=== PATIENT | female | born 1940 | race African-American/Black ===

== ENCOUNTER → 2018-04-08 | Outpatient (CLI) | payer MEDICARE, MEDICAID ==
[~2018-04-08] MED LIST: ALBU18HF2 IH; ALEN70TA46 PO; APIX2.5T PO; ASPI-1158 PO; CLOP75TA16 PO; DILT360C27 PO; DOCU-138 PO; DRON400T PO; FLUT1DIS IH; FURO40TA5 PO; LEVO75TA7 PO; LIP40 PO; LOSA25TA3 PO; LOVAZA PO; MAGN400C PO; NIAC1000 PO
== END | disposition home or self-care (01) ==
LOC: MAMMO 10:30
PROVIDERS: ATTEND Specialist
DX: Z12.31 Encounter for screening mammogram for malignant neoplasm of breast (principal)
CPT/HCPCS: 77067

== ENCOUNTER 2018-08-12 20:24 | Inpatient (IN) | payer MEDICARE, MEDICAID ==
[~2018-08-12] VITALS: Ht 162.6 cm; Wt 62.6 kg
[~2018-08-12 20:24] MED LIST changes: +ALEN70TA3 MT; +DILT360C39 PO; +DOCU-272 PO; +FISH1CAP2 PO
[2018-08-12 21:52] LABS: BASOPHILS % 0.4 % (0.0-2.0); EOSINOPHILS % 0.9 % (0.0-5.0); HEMATOCRIT. 43.8 % (36.0-48.0); HEMOGLOBIN. 14.2 g/dL (12.0-16.0); LYMPHOCYTES % 25.8 % (20.0-50.0); MEAN CORPUSCULAR HEMOGLOBIN 27.7 pg (28.0-32.0); MEAN CORPUSCULAR VOLUME 85.7 fL (81.0-99.0); MEAN PLATELET VOLUME 8.7 fl (7.4-10.4); MONOCYTES % 10.8 % (2.0-8.0); NEUTROPHILS % 62.1 % (40.0-76.0); PLATELET 161 x1000/uL (130-400); RED BLOOD CELL COUNT 5.11 mill/uL (4.2-5.4); RED CELL DISTRIBUTION WIDTH 17.7 % (11.6-14.6)
[2018-08-12 22:00] LABS: PROTHROMBIN TIME 10.3 sec (9.1-11.1)
[2018-08-12 22:01] LABS: CHLORIDE 103 mEq/L (98-107)
[2018-08-12 23:33] LABS: CLARITY URINE CLEAR (CLEAR); COLOR URINE YELLOW (YELLOW); KETONES URINE NEGATIVE (NEGATIVE); LEUKOCYTE ESTERASE URINE 1+ (NEGATIVE); NITRITE URINE NEGATIVE (NEGATIVE); OCCULT BLOOD URINE NEGATIVE (NEGATIVE); PROTEIN URINE NEGATIVE (NEGATIVE); SPECIFIC GRAVITY URINE 1.011 (1.005-1.030); UROBILINOGEN URINE 0.2 E.U./dL (0.2-1.0)
[2018-08-13] MEDS ORDERED: ASPIRIN 81MG TABLET PO ONE (00:15)
[2018-08-13] MEDS ORDERED: CEFTRIAXONE 1 G PREMIX 50 ML IV ONE (00:15)
[2018-08-13 01:50] VITALS: BP 113/52
[2018-08-13] MEDS ORDERED: MEDICATION NOT ON FORMULARY EA (Docusate Sodium (Colace) 100 MG) PO PRN (02:15)
[2018-08-13] MEDS ORDERED: IPRATROPIUM/ALBUTEROL 0.5-3(2.5)MG/3ML NEB HHN PRN (02:45)
[2018-08-13] MEDS ORDERED: TRAMADOL 50MG TABLET PO PRN (02:45)
[2018-08-13] MEDS ORDERED: ACETAMINOPHEN 650MG/20.3ML UDC PO PRN (02:45)
[2018-08-13] MEDS ORDERED: CEFTRIAXONE 1 G PREMIX 50 ML IV SCH (02:45)
[2018-08-13] MEDS ORDERED: DOCUSATE SODIUM 100MG CAPSULE PO PRN (03:00)
[2018-08-13 04:00] VITALS: BP 106/59
[2018-08-13] MEDS: SODIUM CHLORIDE 0.9% INJ 3ML FLUSH IVF SCH ×3 (06:00→21:52)
[2018-08-13] MEDS: DILTIAZEM HCL 30MG TABLET PO SCH ×3 (06:00→21:50)
[2018-08-13] MEDS: LEVOTHYROXINE SODIUM 75MCG TABLET PO SCH (06:49)
[2018-08-13 06:51] LABS: BASOPHILS % 0.5 % (0.0-2.0); EOSINOPHILS % 1.9 % (0.0-5.0); HEMATOCRIT. 38.2 % (36.0-48.0); HEMOGLOBIN. 12.2 g/dL (12.0-16.0); LYMPHOCYTES % 33.6 % (20.0-50.0); MEAN CORPUSCULAR HEMOGLOBIN 27.5 pg (28.0-32.0); MEAN CORPUSCULAR VOLUME 85.6 fL (81.0-99.0); MEAN PLATELET VOLUME 8.7 fl (7.4-10.4); MONOCYTES % 13.4 % (2.0-8.0); NEUTROPHILS % 50.6 % (40.0-76.0); PLATELET 144 x1000/uL (130-400); RED BLOOD CELL COUNT 4.46 mill/uL (4.2-5.4); RED CELL DISTRIBUTION WIDTH 17.5 % (11.6-14.6)
[2018-08-13 07:25] LABS: CHLORIDE 104 mEq/L (98-107)
[2018-08-13 08:00] VITALS: BP 98/63
[2018-08-13] MEDS ORDERED: FUROSEMIDE 20MG TABLET PO SCH (09:00)
[2018-08-13] MEDS ORDERED: MEDICATION NOT ON FORMULARY EA (Aspirin (Aspirin Ec) 81 MG) PO SCH (09:00)
[2018-08-13] MEDS ORDERED: MEDICATION NOT ON FORMULARY EA (Losartan Potassium (Cozaar) 25 MG) PO SCH (09:00)
[2018-08-13] MEDS ORDERED: LOSARTAN POTASSIUM 25 MG TABLET PO SCH (09:00)
[2018-08-13] MEDS ORDERED: MEDICATION NOT ON FORMULARY EA (Clopidogrel Bisulfate (Plavix) 75 MG) PO SCH (09:00)
[2018-08-13] MEDS: ASPIRIN 81MG TABLET PO SCH (09:47)
[2018-08-13] MEDS: APIXABAN 2.5 MG TABLET PO SCH ×2 (09:47→16:40)
[2018-08-13] MEDS: CLOPIDOGREL 75MG TABLET PO SCH (09:47)
[2018-08-13 12:00] VITALS: BP 91/57
[2018-08-13 16:00] VITALS: BP 97/57
[2018-08-13] MEDS: OMEPRAZOLE 20MG CAPSULE EXTENDED RELEASE PO SCH (16:40)
[2018-08-13] MEDS: DOCUSATE SODIUM 250MG CAPSULE PO SCH (16:40)
[2018-08-13 20:00] VITALS: BP 105/55
[2018-08-13] MEDS ORDERED: LACTULOSE 20G/30ML UDC PO PRN (21:00)
[2018-08-13] MEDS ORDERED: ATORVASTATIN CALCIUM 40MG TABLET PO SCH (21:00)
[2018-08-14] VITALS: BP 108/62
[2018-08-14] MEDS ORDERED: CEFTRIAXONE 1 G PREMIX 50 ML IV SCH
[2018-08-14 04:00] VITALS: BP 116/72
[2018-08-14] MEDS: DILTIAZEM HCL 30MG TABLET PO SCH (06:24)
[2018-08-14] MEDS: SODIUM CHLORIDE 0.9% INJ 3ML FLUSH IVF SCH ×2 (06:24→10:08)
[2018-08-14 07:03] LABS: BASOPHILS % 0.5 % (0.0-2.0); EOSINOPHILS % 2.9 % (0.0-5.0); HEMATOCRIT. 39.5 % (36.0-48.0); LYMPHOCYTES % 34.6 % (20.0-50.0); MEAN CORPUSCULAR HEMOGLOBIN 28.2 pg (28.0-32.0); MEAN CORPUSCULAR VOLUME 85.4 fL (81.0-99.0); MEAN PLATELET VOLUME 8.8 fl (7.4-10.4); MONOCYTES % 13.3 % (2.0-8.0); NEUTROPHILS % 48.7 % (40.0-76.0); PLATELET 149 x1000/uL (130-400); RED BLOOD CELL COUNT 4.63 mill/uL (4.2-5.4); RED CELL DISTRIBUTION WIDTH 17.6 % (11.6-14.6)
[2018-08-14 08:00] VITALS: BP 134/85
[2018-08-14] MEDS: DOCUSATE SODIUM 250MG CAPSULE PO SCH (08:28)
[2018-08-14] MEDS: ASPIRIN 81MG TABLET PO SCH (08:28)
[2018-08-14] MEDS: OMEPRAZOLE 20MG CAPSULE EXTENDED RELEASE PO SCH (08:28)
[2018-08-14] MEDS: CLOPIDOGREL 75MG TABLET PO SCH (08:28)
[2018-08-14] MEDS: APIXABAN 2.5 MG TABLET PO SCH (08:29)
[2018-08-14] MEDS: LEVOTHYROXINE SODIUM 75MCG TABLET PO SCH (08:29)
[2018-08-14 11:57] VITALS: BP 115/80
[2018-08-14 12:00] VITALS: BP 113/71
[2018-08-14] MEDS ORDERED: CIPR-264 PO ×2 (12:05→12:06)
== END 2018-08-14 14:15 | disposition home or self-care (01) | DRG 682 ==
LOC: ER 21:58 → 7WST 08-13 00:20 → EDBEDREQ 08-13 00:21 → EDBEDREQTM 08-13 00:21 → ENRESERV 08-13 00:39
PROVIDERS: ADMIT Family Medicine Adult Medicine; ATTEND Family Medicine Adult Medicine
DX: N17.9 Acute kidney failure, unspecified (principal); I50.21 Acute systolic (congestive) heart failure; I13.0 Hypertensive heart and chronic kidney disease with heart failure and stage 1 through stage 4 chronic kidney disease, or unspecified chronic kidney disease; N39.0 Urinary tract infection, site not specified; I34.0 Nonrheumatic mitral (valve) insufficiency; R10.13 Epigastric pain; I48.2 Chronic atrial fibrillation; E03.9 Hypothyroidism, unspecified; K56.41 Fecal impaction; E27.8 Other specified disorders of adrenal gland; E78.5 Hyperlipidemia, unspecified; N18.9 Chronic kidney disease, unspecified; J44.9 Chronic obstructive pulmonary disease, unspecified; I25.5 Ischemic cardiomyopathy; K57.90 Diverticulosis of intestine, part unspecified, without perforation or abscess without bleeding; I73.9 Peripheral vascular disease, unspecified; I25.10 Atherosclerotic heart disease of native coronary artery without angina pectoris; Z95.1 Presence of aortocoronary bypass graft; Z95.810 Presence of automatic (implantable) cardiac defibrillator; Z82.49 Family history of ischemic heart disease and other diseases of the circulatory system; Z79.899 Other long term (current) drug therapy; Z79.02 Long term (current) use of antithrombotics/antiplatelets; Z79.82 Long term (current) use of aspirin; I25.2 Old myocardial infarction
CPT/HCPCS: 36415; 71045; 74176; 80048; 83735; 83880; 84484; 93005; 96365; 97162; 99285; J0696

== ENCOUNTER 2019-06-06 20:54 | Emergency (ER) | payer MEDICARE, OTHER ==
[~2019-06-06] VITALS: Ht 160 cm; Wt 60.0 kg
[~2019-06-06 20:54] MED LIST changes: -ALBU18HF2 IH; -ALEN70TA3 MT; -ALEN70TA46 PO; +CIPR-264 PO; -CLOP75TA16 PO; +CLOP75TA4 PO; -DILT360C27 PO; -DILT360C39 PO; -DRON400T PO; -FISH1CAP2 PO; -FLUT1DIS IH; -FURO40TA5 PO; -LOVAZA PO; -MAGN400C PO; -NIAC1000 PO
[2019-06-06] MEDS ORDERED: SODIUM CHLORIDE 0.9% 1,000 ML IV ONE (21:25)
[2019-06-06 21:51] LABS: BASOPHILS % 0.6 % (0.0-2.0); HEMATOCRIT. 41.6 % (36.0-48.0); HEMOGLOBIN. 13.4 g/dL (12.0-16.0); LYMPHOCYTES % 20.4 % (20.0-50.0); MEAN CORPUSCULAR HEMOGLOBIN 28.2 pg (28.0-32.0); MEAN CORPUSCULAR VOLUME 87.3 fL (81.0-99.0); MEAN PLATELET VOLUME 8.9 fl (7.4-10.4); MONOCYTES % 8.9 % (2.0-8.0); NEUTROPHILS % 69.1 % (40.0-76.0); PLATELET 166 x1000/uL (130-400); RED BLOOD CELL COUNT 4.77 mill/uL (4.2-5.4); RED CELL DISTRIBUTION WIDTH 18.2 % (11.6-14.6)
[2019-06-06 21:52] LABS: CHLORIDE 115 mEq/L (98-107)
[2019-06-06 22:35] LABS: CLARITY URINE CLOUDY (CLEAR); COLOR URINE YELLOW (YELLOW); KETONES URINE NEGATIVE (NEGATIVE); LEUKOCYTE ESTERASE URINE 2+ (NEGATIVE); NITRITE URINE NEGATIVE (NEGATIVE); OCCULT BLOOD URINE NEGATIVE (NEGATIVE); PH URINE 5.5 (4.5-8.0); PROTEIN URINE NEGATIVE (NEGATIVE); SPECIFIC GRAVITY URINE 1.017 (1.005-1.030)
[2019-06-07 00:03] VITALS: BP 134/83
== END 2019-06-07 00:04 | disposition home or self-care (01) ==
LOC: ER 20:54
DX: R55 Syncope and collapse (principal); E86.0 Dehydration; N39.0 Urinary tract infection, site not specified; I48.91 Unspecified atrial fibrillation; I25.10 Atherosclerotic heart disease of native coronary artery without angina pectoris; E11.9 Type 2 diabetes mellitus without complications; I10 Essential (primary) hypertension; I25.2 Old myocardial infarction; J44.9 Chronic obstructive pulmonary disease, unspecified; Z95.1 Presence of aortocoronary bypass graft; Z79.899 Other long term (current) drug therapy
CPT/HCPCS: 36415; 71045; 80053; 81003; 83690; 83880; 84484; 85025; 93005; 96360; 96361; 99284; J7030

== ENCOUNTER 2019-07-29 03:40 | Inpatient (IN) | payer MEDICARE, MEDICAID, OTHER ==
[~2019-07-29] VITALS: Ht 162.6 cm; Wt 65.8 kg
[2019-07-29] MEDS ORDERED: METHYLPREDNISOLONE SOD SUCC 125 MG/2 ML VIAL IV STA (04:00)
[2019-07-29] MEDS ORDERED: ALBUTEROL (0.083%) 2.5MG/3ML NEB HHN STA (04:00)
[2019-07-29] MEDS ORDERED: IPRATROPIUM BROMIDE (0.02%) 0.5MG/2.5ML NEB HHN STA (04:00)
[2019-07-29 04:31] LABS: CHLORIDE 115 mEq/L (98-107)
[2019-07-29 04:32] LABS: BASOPHILS % 0.8 % (0.0-2.0); EOSINOPHILS % 2.2 % (0.0-5.0); HEMOGLOBIN. 11.5 g/dL (12.0-16.0); LYMPHOCYTES % 33.4 % (20.0-50.0); MEAN CORPUSCULAR HEMOGLOBIN 28.3 pg (28.0-32.0); MEAN CORPUSCULAR VOLUME 88.8 fL (81.0-99.0); MEAN PLATELET VOLUME 8.8 fl (7.4-10.4); MONOCYTES % 11.2 % (2.0-8.0); NEUTROPHILS % 52.4 % (40.0-76.0); PLATELET 153 x1000/uL (130-400); RED BLOOD CELL COUNT 4.05 mill/uL (4.2-5.4); RED CELL DISTRIBUTION WIDTH 19.2 % (11.6-14.6)
[2019-07-29] MEDS ORDERED: FUROSEMIDE 40MG/4ML VIAL IVP ONE (05:30)
[2019-07-29 08:00] VITALS: BP 154/78
[2019-07-29] MEDS ORDERED: MAGNESIUM/ALUMINUM HYDROXIDE/SIMETHICONE 30ML UDC PO PRN (10:00)
[2019-07-29] MEDS ORDERED: GUAIFENESIN 200MG/10ML SUGAR FREE UDC PO PRN (10:00)
[2019-07-29] MEDS ORDERED: ACETAMINOPHEN 325MG TABLET PO PRN (10:00)
[2019-07-29] MEDS ORDERED: HYDROCODONE/ACETAMINOPHEN 5/325MG TABLET PO PRN (10:00)
[2019-07-29] MEDS ORDERED: DOCUSATE SODIUM 100MG CAPSULE PO PRN (10:00)
[2019-07-29] MEDS ORDERED: CLONIDINE 0.1MG TABLET PO PRN (10:00)
[2019-07-29] MEDS ORDERED: IPRATROPIUM/ALBUTEROL 0.5-3(2.5)MG/3ML NEB HHN PRN (10:00)
[2019-07-29] MEDS ORDERED: ATOR40TA70 PO (10:23)
[2019-07-29] MEDS ORDERED: DOCU-138 PO (10:23)
[2019-07-29] MEDS ORDERED: LEVO25TA2 PO (10:23)
[2019-07-29] MEDS ORDERED: ALEN1TAB MT (10:23)
[2019-07-29] MEDS ORDERED: ALBU6.7H9 INH (10:23)
[2019-07-29] MEDS ORDERED: DILT360C27 PO (10:23)
[2019-07-29] MEDS ORDERED: LOSA25TA26 PO (10:23)
[2019-07-29] MEDS ORDERED: FURO-151 PO (10:23)
[2019-07-29] MEDS ORDERED: DONE5TAB7 MT (10:23)
[2019-07-29 12:00] VITALS: BP 130/62
[2019-07-29] MEDS ORDERED: DILTIAZEM HCL 300MG CAPSULE SR 24HR PO SCH (12:45)
[2019-07-29] MEDS ORDERED: APIXABAN 2.5 MG TABLET PO SCH (13:00)
[2019-07-29] MEDS ORDERED: INFLUENZA VIRUS VACCINE(AFLURIA) 0.5ML SYR IM ONE (14:00)
[2019-07-29] MEDS ORDERED: AZITHROMYCIN 500 MG TABLET PO NR (15:00)
[2019-07-29] MEDS: FUROSEMIDE 40MG TABLET PO SCH (15:36)
[2019-07-29] MEDS: LOSARTAN POTASSIUM 25 MG TABLET PO SCH (15:36)
[2019-07-29] MEDS: ASPIRIN 81MG EC TABLET PO SCH (15:37)
[2019-07-29] MEDS: LEVOTHYROXINE SODIUM 25MCG TABLET PO SCH (15:37)
[2019-07-29] MEDS: DONEPEZIL HCL 5MG TABLET PO SCH (15:37)
[2019-07-29] MEDS: CLOPIDOGREL 75MG TABLET PO SCH (15:37)
[2019-07-29 16:00] VITALS: BP 130/69
[2019-07-29] MEDS: DILTIAZEM HCL 180MG CAPSULE CD 24HR PO SCH (18:14)
[2019-07-29] MEDS: PREDNISONE 20MG TABLET PO SCH (18:15)
[2019-07-29] MEDS: APIXABAN 2.5 MG TABLET PO SCH (18:16)
[2019-07-29] MEDS: ATORVASTATIN CALCIUM 40MG TABLET PO SCH (20:34)
[2019-07-29] MEDS: FLUTICASONE PROPIONATE 50MCG/SPRAY BOTTLE BOTHNSTRLS SCH (20:34)
[2019-07-29] MEDS: GUAIFENESIN 600MG ER TABLET PO SCH (20:34)
[2019-07-29] MEDS: IPRATROPIUM/ALBUTEROL 0.5-3(2.5)MG/3ML NEB HHN SCH (20:42)
[2019-07-29 20:53] VITALS: BP 146/91
[2019-07-30] VITALS: BP 116/58
[2019-07-30 00:18] VITALS: BP 98/53
[2019-07-30] MEDS: IPRATROPIUM/ALBUTEROL 0.5-3(2.5)MG/3ML NEB HHN SCH ×4 (02:17→21:12)
[2019-07-30 04:00] VITALS: BP 121/72
[2019-07-30 06:05] LABS: CLARITY URINE CLEAR (CLEAR); COLOR URINE YELLOW (YELLOW); KETONES URINE NEGATIVE (NEGATIVE); LEUKOCYTE ESTERASE URINE NEGATIVE (NEGATIVE); NITRITE URINE NEGATIVE (NEGATIVE); OCCULT BLOOD URINE NEGATIVE (NEGATIVE); PROTEIN URINE NEGATIVE (NEGATIVE); SPECIFIC GRAVITY URINE 1.013 (1.005-1.030); UROBILINOGEN URINE 0.2 E.U./dL (0.2-1.0)
[2019-07-30 06:26] LABS: *AMPHETAMINES SCREEN URINE NEGATIVE (NEGATIVE); *BARBITURATES SCREEN URINE NEGATIVE (NEGATIVE); *BENZODIAZEPINES SCREEN URINE NEGATIVE (NEGATIVE); *COCAINE SCREEN URINE NEGATIVE (NEGATIVE); METHADONE URINE SCREEN NEGATIVE (NEGATIVE); OPIATES URINE SCREEN NEGATIVE (NEGATIVE)
[2019-07-30 06:27] LABS: CANNABINOID URINE SCREEN PRESUMTIVE POSITIVE (NEGATIVE); PHENCYCLIDINE URINE SCREEN NEGATIVE (NEGATIVE)
[2019-07-30 08:00] VITALS: BP 133/88
[2019-07-30] MEDS: LEVOTHYROXINE SODIUM 25MCG TABLET PO SCH (08:17)
[2019-07-30] MEDS: DONEPEZIL HCL 5MG TABLET PO SCH (09:55)
[2019-07-30] MEDS: GUAIFENESIN 600MG ER TABLET PO SCH ×2 (09:55→20:55)
[2019-07-30] MEDS: CLOPIDOGREL 75MG TABLET PO SCH (09:55)
[2019-07-30] MEDS: FUROSEMIDE 40MG TABLET PO SCH (09:56)
[2019-07-30] MEDS: AZITHROMYCIN 250 MG TABLET PO SCH (09:56)
[2019-07-30] MEDS: ASPIRIN 81MG EC TABLET PO SCH (09:56)
[2019-07-30] MEDS: LOSARTAN POTASSIUM 25 MG TABLET PO SCH (09:56)
[2019-07-30] MEDS: DILTIAZEM HCL 180MG CAPSULE CD 24HR PO SCH (09:56)
[2019-07-30] MEDS: APIXABAN 2.5 MG TABLET PO SCH ×2 (09:58→17:53)
[2019-07-30] MEDS: PREDNISONE 20MG TABLET PO SCH ×2 (09:58→17:53)
[2019-07-30] MEDS: FLUTICASONE PROPIONATE 50MCG/SPRAY BOTTLE BOTHNSTRLS SCH ×2 (10:02→20:56)
[2019-07-30 13:16] LABS: CHLORIDE 109 mEq/L (98-107)
[2019-07-30 13:22] LABS: HEMATOCRIT. 34.5 % (36.0-48.0); HEMOGLOBIN. 11.1 g/dL (12.0-16.0); MEAN CORPUSCULAR HEMOGLOBIN 27.6 pg (28.0-32.0); MEAN CORPUSCULAR VOLUME 86.1 fL (81.0-99.0); MEAN PLATELET VOLUME 8.9 fl (7.4-10.4); PLATELET 163 x1000/uL (130-400); RED BLOOD CELL COUNT 4.01 mill/uL (4.2-5.4); RED CELL DISTRIBUTION WIDTH 18.5 % (11.6-14.6)
[2019-07-30 13:24] LABS: PHOSPHORUS 2.7 mg/dL (2.5-4.9)
[2019-07-30 13:25] LABS: LDL CHOLESTEROL 58 mg/dL (5-100)
[2019-07-30 13:28] LABS: HDL CHOLESTEROL 59 mg/dL (40-59); T4 FREE 1.19 ng/dL (0.76-1.46)
[2019-07-30 16:00] VITALS: BP 107/53
[2019-07-30 18:19] LABS: PLATELET ESTIMATE NORMAL
[2019-07-30 20:00] VITALS: BP 112/53
[2019-07-30] MEDS: ATORVASTATIN CALCIUM 40MG TABLET PO SCH (20:56)
[2019-07-31] VITALS: BP 103/56
[2019-07-31] MEDS: IPRATROPIUM/ALBUTEROL 0.5-3(2.5)MG/3ML NEB HHN SCH ×4 (01:50→19:54)
[2019-07-31 04:00] VITALS: BP 97/46
[2019-07-31 07:23] LABS: HEMATOCRIT. 35.1 % (36.0-48.0); HEMOGLOBIN. 11.2 g/dL (12.0-16.0); MEAN CORPUSCULAR HEMOGLOBIN 27.5 pg (28.0-32.0); MEAN PLATELET VOLUME 8.7 fl (7.4-10.4); PLATELET 164 x1000/uL (130-400); RED BLOOD CELL COUNT 4.08 mill/uL (4.2-5.4); RED CELL DISTRIBUTION WIDTH 18.3 % (11.6-14.6)
[2019-07-31 08:00] VITALS: BP 114/59
[2019-07-31] MEDS: LEVOTHYROXINE SODIUM 25MCG TABLET PO SCH (08:28)
[2019-07-31 09:45] LABS: PLATELET ESTIMATE NORMAL
[2019-07-31] MEDS: FLUTICASONE PROPIONATE 50MCG/SPRAY BOTTLE BOTHNSTRLS SCH ×2 (09:48→21:04)
[2019-07-31] MEDS: PREDNISONE 20MG TABLET PO SCH ×2 (09:48→16:22)
[2019-07-31] MEDS: GUAIFENESIN 600MG ER TABLET PO SCH ×2 (09:49→21:04)
[2019-07-31] MEDS: LOSARTAN POTASSIUM 25 MG TABLET PO SCH (09:49)
[2019-07-31] MEDS: DONEPEZIL HCL 5MG TABLET PO SCH (09:49)
[2019-07-31] MEDS: AZITHROMYCIN 250 MG TABLET PO SCH (09:49)
[2019-07-31] MEDS: ASPIRIN 81MG EC TABLET PO SCH (09:49)
[2019-07-31] MEDS: APIXABAN 2.5 MG TABLET PO SCH ×2 (09:49→16:22)
[2019-07-31] MEDS: FUROSEMIDE 40MG TABLET PO SCH (09:49)
[2019-07-31] MEDS: CLOPIDOGREL 75MG TABLET PO SCH (09:49)
[2019-07-31] MEDS: DILTIAZEM HCL 180MG CAPSULE CD 24HR PO SCH (09:49)
[2019-07-31 13:31] VITALS: BP 108/58
[2019-07-31 16:53] VITALS: BP 108/46
[2019-07-31 20:00] VITALS: BP 99/54
[2019-07-31] MEDS: ATORVASTATIN CALCIUM 40MG TABLET PO SCH (21:04)
[2019-08-01] VITALS: BP 101/56
[2019-08-01] MEDS: IPRATROPIUM/ALBUTEROL 0.5-3(2.5)MG/3ML NEB HHN SCH ×5 (01:30→21:30)
[2019-08-01 04:00] VITALS: BP 103/58
[2019-08-01] MEDS: LEVOTHYROXINE SODIUM 25MCG TABLET PO SCH (06:34)
[2019-08-01 07:38] LABS: HEMATOCRIT. 34.8 % (36.0-48.0); HEMOGLOBIN. 11.2 g/dL (12.0-16.0); MEAN CORPUSCULAR HEMOGLOBIN 27.8 pg (28.0-32.0); MEAN CORPUSCULAR VOLUME 86.2 fL (81.0-99.0); MEAN PLATELET VOLUME 8.7 fl (7.4-10.4); PLATELET 159 x1000/uL (130-400); RED BLOOD CELL COUNT 4.03 mill/uL (4.2-5.4); RED CELL DISTRIBUTION WIDTH 18.1 % (11.6-14.6)
[2019-08-01 08:00] VITALS: BP 141/72
[2019-08-01 09:23] LABS: PLATELET ESTIMATE NORMAL
[2019-08-01] MEDS: ASPIRIN 81MG EC TABLET PO SCH (09:35)
[2019-08-01] MEDS: GUAIFENESIN 600MG ER TABLET PO SCH ×2 (09:35→21:23)
[2019-08-01] MEDS: PREDNISONE 20MG TABLET PO SCH ×2 (09:35→16:58)
[2019-08-01] MEDS: DONEPEZIL HCL 5MG TABLET PO SCH (09:36)
[2019-08-01] MEDS: CLOPIDOGREL 75MG TABLET PO SCH (09:36)
[2019-08-01] MEDS: APIXABAN 2.5 MG TABLET PO SCH ×2 (09:36→16:58)
[2019-08-01] MEDS: AZITHROMYCIN 250 MG TABLET PO SCH (09:36)
[2019-08-01] MEDS: LOSARTAN POTASSIUM 25 MG TABLET PO SCH (09:36)
[2019-08-01] MEDS: DILTIAZEM HCL 180MG CAPSULE CD 24HR PO SCH (09:37)
[2019-08-01] MEDS: FLUTICASONE PROPIONATE 50MCG/SPRAY BOTTLE BOTHNSTRLS SCH (09:43)
[2019-08-01 12:00] VITALS: BP 117/68
[2019-08-01] MEDS ORDERED: SODIUM CHLORIDE 0.9% 1,000 ML IV ONE (14:15)
[2019-08-01 17:24] VITALS: BP 94/55
[2019-08-01 20:00] VITALS: BP 100/49
[2019-08-01] MEDS: ATORVASTATIN CALCIUM 40MG TABLET PO SCH (21:23)
[2019-08-01] MEDS: BUDESONIDE 0.5MG/2ML NEB HHN SCH (21:30)
[2019-08-02] VITALS: BP 129/72
[2019-08-02] MEDS: IPRATROPIUM/ALBUTEROL 0.5-3(2.5)MG/3ML NEB HHN SCH ×3 (01:39→13:41)
[2019-08-02 04:00] VITALS: BP 124/69
[2019-08-02 06:40] LABS: HEMATOCRIT. 35.2 % (36.0-48.0); HEMOGLOBIN. 11.3 g/dL (12.0-16.0); MEAN CORPUSCULAR HEMOGLOBIN 27.8 pg (28.0-32.0); MEAN CORPUSCULAR VOLUME 86.4 fL (81.0-99.0); MEAN PLATELET VOLUME 8.7 fl (7.4-10.4); PLATELET 163 x1000/uL (130-400); RED BLOOD CELL COUNT 4.07 mill/uL (4.2-5.4); RED CELL DISTRIBUTION WIDTH 18.4 % (11.6-14.6)
[2019-08-02 08:00] VITALS: BP 103/54
[2019-08-02] MEDS: BUDESONIDE 0.5MG/2ML NEB HHN SCH (08:44)
[2019-08-02] MEDS: PREDNISONE 20MG TABLET PO SCH (09:03)
[2019-08-02] MEDS: APIXABAN 2.5 MG TABLET PO SCH (09:03)
[2019-08-02] MEDS: DONEPEZIL HCL 5MG TABLET PO SCH (09:03)
[2019-08-02] MEDS: CLOPIDOGREL 75MG TABLET PO SCH (09:03)
[2019-08-02] MEDS: AZITHROMYCIN 250 MG TABLET PO SCH (09:04)
[2019-08-02] MEDS: DILTIAZEM HCL 180MG CAPSULE CD 24HR PO SCH (09:05)
[2019-08-02] MEDS: GUAIFENESIN 600MG ER TABLET PO SCH (09:06)
[2019-08-02] MEDS: ASPIRIN 81MG EC TABLET PO SCH (09:26)
[2019-08-02] MEDS: LEVOTHYROXINE SODIUM 25MCG TABLET PO SCH (09:27)
[2019-08-02 13:07] LABS: PLATELET ESTIMATE NORMAL
[2019-08-02 14:20] LABS: CREATINE KINASE 46 IU/L (26-192)
[2019-08-02 17:36] VITALS: BP 122/70
[2019-08-02 20:00] VITALS: BP 117/60
[2019-08-03 09:09] LABS: COMPLEMENT C3 124 mg/dL (82-167)
[2019-08-03 17:11] LABS: ANTI-NUCLEAR ANTIBODIES DIRECT Negative (Negative)
== END 2019-08-02 20:46 | disposition home health service (06) | DRG 189 ==
LOC: ER 03:40 → 7WST 05:19 → ENRESERV 07:07
PROVIDERS: ADMIT Family Medicine Adult Medicine; ATTEND Family Medicine Adult Medicine
DX: J96.00 Acute respiratory failure, unspecified whether with hypoxia or hypercapnia (principal); J44.1 Chronic obstructive pulmonary disease with (acute) exacerbation; I48.20 Chronic atrial fibrillation, unspecified; I50.22 Chronic systolic (congestive) heart failure; N17.9 Acute kidney failure, unspecified; I13.0 Hypertensive heart and chronic kidney disease with heart failure and stage 1 through stage 4 chronic kidney disease, or unspecified chronic kidney disease; E03.9 Hypothyroidism, unspecified; E11.51 Type 2 diabetes mellitus with diabetic peripheral angiopathy without gangrene; E78.5 Hyperlipidemia, unspecified; I25.10 Atherosclerotic heart disease of native coronary artery without angina pectoris; I25.5 Ischemic cardiomyopathy; J06.9 Acute upper respiratory infection, unspecified; I34.0 Nonrheumatic mitral (valve) insufficiency; N18.9 Chronic kidney disease, unspecified; E11.22 Type 2 diabetes mellitus with diabetic chronic kidney disease; E87.5 Hyperkalemia; T38.0X5A Adverse effect of glucocorticoids and synthetic analogues, initial encounter; F12.90 Cannabis use, unspecified, uncomplicated; I49.5 Sick sinus syndrome; I27.21 Secondary pulmonary arterial hypertension; Z79.01 Long term (current) use of anticoagulants; Z87.891 Personal history of nicotine dependence; Z95.0 Presence of cardiac pacemaker; Z95.1 Presence of aortocoronary bypass graft; Z79.82 Long term (current) use of aspirin; Z79.899 Other long term (current) drug therapy; Z88.0 Allergy status to penicillin; Y92.89 Other specified places as the place of occurrence of the external cause
CPT/HCPCS: 36415; 71045; 76770; 80048; 80061; 80305; 81003; 82550; 83735; 83880; 84100; 84439; 84443; 84484; 86038; 86160; 87804; 90686; 93005; 93306; 93970; 94618; 94640; 94644; 96374; 97163; 97166; 99285; J1940; J2930; J7512; J7611; J7620; J7626

== ENCOUNTER 2019-08-21 18:59 | Inpatient (IN) | payer MEDICARE, OTHER ==
[~2019-08-21] VITALS: Ht 162.6 cm; Wt 78.5 kg
[~2019-08-21 18:59] MED LIST changes: +ALBU6.7H9 INH; +ALEN1TAB MT; -CIPR-264 PO; +DILT360C27 PO; -DOCU-272 PO; +DONE5TAB7 MT; +FURO-151 PO; +LEVO25TA2 PO; -LEVO75TA7 PO; +LOSA25TA26 PO; -LOSA25TA3 PO
[2019-08-21] MEDS ORDERED: SODIUM CHLORIDE 0.9% 250 ML IV ONE (20:19)
[2019-08-21] MEDS ORDERED: DILTIAZEM HCL 5MG/ML 5ML VIAL IV ONE (20:30)
[2019-08-21 21:01] LABS: BASOPHILS % 0.9 % (0.0-2.0); EOSINOPHILS % 2.5 % (0.0-5.0); HEMATOCRIT. 37.1 % (36.0-48.0); HEMOGLOBIN. 11.9 g/dL (12.0-16.0); LYMPHOCYTES % 25.9 % (20.0-50.0); MEAN CORPUSCULAR VOLUME 87.4 fL (81.0-99.0); MEAN PLATELET VOLUME 8.2 fl (7.4-10.4); MONOCYTES % 9.7 % (2.0-8.0); PLATELET 165 x1000/uL (130-400); RED BLOOD CELL COUNT 4.24 mill/uL (4.2-5.4); RED CELL DISTRIBUTION WIDTH 19.4 % (11.6-14.6)
[2019-08-21 21:09] LABS: CHLORIDE 113 mEq/L (98-107)
[2019-08-21] MEDS ORDERED: DOCUSATE SODIUM 100MG CAPSULE PO PRN (22:00)
[2019-08-21] MEDS ORDERED: ACETAMINOPHEN 325MG TABLET PO PRN (22:00)
[2019-08-21] MEDS ORDERED: DIPHENHYDRAMINE 50MG/ML VIAL IV PRN (22:00)
[2019-08-21] MEDS ORDERED: LORAZEPAM 2MG/ML CPJ IV PRN (22:00)
[2019-08-21] MEDS ORDERED: GUAIFENESIN 200MG/10ML SUGAR FREE UDC PO PRN (22:00)
[2019-08-21] MEDS ORDERED: MAGNESIUM/ALUMINUM HYDROXIDE/SIMETHICONE 30ML UDC PO PRN (22:00)
[2019-08-21] MEDS ORDERED: CLONIDINE 0.1MG TABLET PO PRN (22:00)
[2019-08-21] MEDS ORDERED: MORPHINE SULFATE 2 MG/ML CPJ (NOT FOR IM USE) IV PRN (22:00)
[2019-08-21] MEDS ORDERED: IPRATROPIUM/ALBUTEROL 0.5-3(2.5)MG/3ML NEB HHN PRN (22:00)
[2019-08-21] MEDS ORDERED: ONDANSETRON HCL 4MG/2ML INJ IV PRN (22:00)
[2019-08-21] MEDS ORDERED: ACETAMINOPHEN 650MG SUPP PR PRN (22:00)
[2019-08-21 23:20] VITALS: BP 134/81
[2019-08-22] VITALS: BP 134/81
[2019-08-22 04:00] VITALS: BP 107/63
[2019-08-22 07:18] LABS: BASOPHILS % 0.6 % (0.0-2.0); EOSINOPHILS % 3.3 % (0.0-5.0); HEMOGLOBIN. 11.6 g/dL (12.0-16.0); LYMPHOCYTES % 28.8 % (20.0-50.0); MEAN CORPUSCULAR VOLUME 86.5 fL (81.0-99.0); MEAN PLATELET VOLUME 8.5 fl (7.4-10.4); MONOCYTES % 12.4 % (2.0-8.0); NEUTROPHILS % 54.9 % (40.0-76.0); PLATELET 169 x1000/uL (130-400); RED BLOOD CELL COUNT 4.16 mill/uL (4.2-5.4); RED CELL DISTRIBUTION WIDTH 18.7 % (11.6-14.6)
[2019-08-22 07:30] LABS: CHLORIDE 115 mEq/L (98-107)
[2019-08-22 07:41] LABS: LDL CHOLESTEROL 79 mg/dL (5-100)
[2019-08-22 07:42] LABS: HDL CHOLESTEROL 71 mg/dL (40-59)
[2019-08-22 07:43] LABS: T4 FREE 0.97 ng/dL (0.76-1.46)
[2019-08-22 08:00] VITALS: BP 134/86
[2019-08-22] MEDS: FUROSEMIDE 40MG/4ML VIAL IV SCH (09:19)
[2019-08-22 12:00] VITALS: BP 117/51
[2019-08-22] MEDS ORDERED: IPRATROPIUM BROMIDE (0.02%) 0.5MG/2.5ML NEB HHN SCH (14:30)
[2019-08-22 16:00] VITALS: BP 122/79
[2019-08-22] MEDS: APIXABAN 5 MG TABLET PO SCH (16:07)
[2019-08-22] MEDS: ASPIRIN 81MG EC TABLET PO SCH (16:08)
[2019-08-22] MEDS: DILTIAZEM HCL 60MG TABLET PO SCH (17:12)
[2019-08-22 18:33] LABS: *AMPHETAMINES SCREEN URINE NEGATIVE (NEGATIVE); *BARBITURATES SCREEN URINE NEGATIVE (NEGATIVE); *BENZODIAZEPINES SCREEN URINE NEGATIVE (NEGATIVE); CANNABINOID URINE SCREEN NEGATIVE (NEGATIVE); PHENCYCLIDINE URINE SCREEN NEGATIVE (NEGATIVE)
[2019-08-22 18:34] LABS: *COCAINE SCREEN URINE NEGATIVE (NEGATIVE); METHADONE URINE SCREEN NEGATIVE (NEGATIVE); OPIATES URINE SCREEN NEGATIVE (NEGATIVE)
[2019-08-22] MEDS: BUDESONIDE 0.5MG/2ML NEB HHN SCH (19:59)
[2019-08-22] MEDS: IPRATROPIUM BROMIDE (0.02%) 0.5MG/2.5ML NEB HHN SCH ×2 (19:59→22:00)
[2019-08-22 20:00] VITALS: BP 118/61
[2019-08-22] MEDS: ATORVASTATIN CALCIUM 40MG TABLET PO SCH (22:28)
[2019-08-23] VITALS: BP 111/73
[2019-08-23] MEDS: DILTIAZEM HCL 60MG TABLET PO SCH ×4 (00:36→17:51)
[2019-08-23] MEDS: IPRATROPIUM BROMIDE (0.02%) 0.5MG/2.5ML NEB HHN SCH ×4 (02:12→20:00)
[2019-08-23 04:00] VITALS: BP 130/81
[2019-08-23 07:35] LABS: BASOPHILS % 0.6 % (0.0-2.0); EOSINOPHILS % 4.7 % (0.0-5.0); HEMATOCRIT. 32.9 % (36.0-48.0); HEMOGLOBIN. 10.8 g/dL (12.0-16.0); LYMPHOCYTES % 29.3 % (20.0-50.0); MEAN CORPUSCULAR HEMOGLOBIN 28.3 pg (28.0-32.0); MEAN CORPUSCULAR VOLUME 86.6 fL (81.0-99.0); MEAN PLATELET VOLUME 8.2 fl (7.4-10.4); MONOCYTES % 12.9 % (2.0-8.0); NEUTROPHILS % 52.5 % (40.0-76.0); PLATELET 160 x1000/uL (130-400); RED CELL DISTRIBUTION WIDTH 18.8 % (11.6-14.6)
[2019-08-23 07:40] LABS: CHLORIDE 111 mEq/L (98-107)
[2019-08-23] MEDS: BUDESONIDE 0.5MG/2ML NEB HHN SCH ×2 (07:55→19:58)
[2019-08-23 08:00] VITALS: BP 114/72
[2019-08-23] MEDS: FUROSEMIDE 40MG/4ML VIAL IV SCH (08:45)
[2019-08-23] MEDS: ASPIRIN 81MG EC TABLET PO SCH (08:45)
[2019-08-23] MEDS: APIXABAN 5 MG TABLET PO SCH ×2 (08:46→17:51)
[2019-08-23 12:00] VITALS: BP 117/83
[2019-08-23 16:00] VITALS: BP 134/73
[2019-08-23 20:00] VITALS: BP 110/56
[2019-08-23] MEDS: ATORVASTATIN CALCIUM 40MG TABLET PO SCH (21:20)
[2019-08-24] VITALS: BP 118/64
[2019-08-24] MEDS: DILTIAZEM HCL 60MG TABLET PO SCH ×4 (00:29→17:44)
[2019-08-24 04:00] VITALS: BP 112/74
[2019-08-24 07:09] LABS: BASOPHILS % 0.5 % (0.0-2.0); EOSINOPHILS % 4.7 % (0.0-5.0); HEMATOCRIT. 33.4 % (36.0-48.0); LYMPHOCYTES % 30.7 % (20.0-50.0); MEAN CORPUSCULAR HEMOGLOBIN 28.3 pg (28.0-32.0); MEAN CORPUSCULAR VOLUME 85.7 fL (81.0-99.0); MEAN PLATELET VOLUME 8.1 fl (7.4-10.4); MONOCYTES % 12.8 % (2.0-8.0); NEUTROPHILS % 51.3 % (40.0-76.0); PLATELET 166 x1000/uL (130-400); RED CELL DISTRIBUTION WIDTH 18.7 % (11.6-14.6)
[2019-08-24] MEDS: BUDESONIDE 0.5MG/2ML NEB HHN SCH (07:56)
[2019-08-24] MEDS: IPRATROPIUM BROMIDE (0.02%) 0.5MG/2.5ML NEB HHN SCH ×2 (07:56→14:11)
[2019-08-24 08:00] VITALS: BP 98/49
[2019-08-24] MEDS: FUROSEMIDE 40MG/4ML VIAL IV SCH (09:00)
[2019-08-24] MEDS: ASPIRIN 81MG EC TABLET PO SCH (09:54)
[2019-08-24] MEDS: APIXABAN 5 MG TABLET PO SCH ×2 (09:54→17:46)
[2019-08-24 12:00] VITALS: BP 98/52
[2019-08-24 17:27] VITALS: BP 98/52
== END 2019-08-24 18:58 | DRG 291 ==
LOC: ER 18:59 → 8WST 21:55 → ENRESERV 22:55 → CANRESERV 22:55 → ENRESERV 22:58
PROVIDERS: ADMIT Family Medicine Adult Medicine; ATTEND Family Medicine Adult Medicine
DX: I13.0 Hypertensive heart and chronic kidney disease with heart failure and stage 1 through stage 4 chronic kidney disease, or unspecified chronic kidney disease (principal); I50.23 Acute on chronic systolic (congestive) heart failure; J96.00 Acute respiratory failure, unspecified whether with hypoxia or hypercapnia; J44.1 Chronic obstructive pulmonary disease with (acute) exacerbation; I48.19 Other persistent atrial fibrillation; I42.9 Cardiomyopathy, unspecified; E16.2 Hypoglycemia, unspecified; E03.9 Hypothyroidism, unspecified; E87.8 Other disorders of electrolyte and fluid balance, not elsewhere classified; I49.5 Sick sinus syndrome; I25.10 Atherosclerotic heart disease of native coronary artery without angina pectoris; N18.9 Chronic kidney disease, unspecified; I27.20 Pulmonary hypertension, unspecified; D64.9 Anemia, unspecified; E78.00 Pure hypercholesterolemia, unspecified; R26.9 Unspecified abnormalities of gait and mobility; E78.5 Hyperlipidemia, unspecified; Z82.49 Family history of ischemic heart disease and other diseases of the circulatory system; Z87.891 Personal history of nicotine dependence; Z95.1 Presence of aortocoronary bypass graft; Z79.01 Long term (current) use of anticoagulants; Z95.0 Presence of cardiac pacemaker; Z79.899 Other long term (current) drug therapy; Z91.14 Patient's other noncompliance with medication regimen
CPT/HCPCS: 36415; 71045; 80048; 80061; 80305; 82962; 83735; 83880; 84439; 84443; 84484; 92523; 93005; 94640; 96361; 96374; 97112; 97116; 97162; 97166; 99285; J1940; J3490; J7050; J7620; J7626

== ENCOUNTER 2019-08-24 18:55 | Inpatient (IN) | payer MEDICARE, OTHER ==
[~2019-08-24] VITALS: Ht 162.6 cm; Wt 78.5 kg
[2019-08-24 18:55] VITALS: BP 112/67
[2019-08-24 20:00] VITALS: BP 106/35
[2019-08-24] MEDS ORDERED: LORAZEPAM 2MG/ML CPJ IV PRN (20:00)
[2019-08-24] MEDS ORDERED: ONDANSETRON HCL 4MG/2ML INJ IV PRN (20:00)
[2019-08-24] MEDS ORDERED: IPRATROPIUM/ALBUTEROL 0.5-3(2.5)MG/3ML NEB HHN PRN (20:00)
[2019-08-24] MEDS ORDERED: MORPHINE SULFATE 2 MG/ML CPJ (NOT FOR IM USE) IV PRN (20:00)
[2019-08-24] MEDS ORDERED: DOCUSATE SODIUM 100MG CAPSULE PO PRN (20:00)
[2019-08-24] MEDS ORDERED: ACETAMINOPHEN 650MG SUPP PR PRN (20:00)
[2019-08-24] MEDS ORDERED: GUAIFENESIN 200MG/10ML SUGAR FREE UDC PO PRN (20:00)
[2019-08-24] MEDS ORDERED: DIPHENHYDRAMINE 50MG/ML VIAL IV PRN (20:00)
[2019-08-24] MEDS ORDERED: MAGNESIUM/ALUMINUM HYDROXIDE/SIMETHICONE 30ML UDC PO PRN (20:00)
[2019-08-24] MEDS ORDERED: ACETAMINOPHEN 325MG TABLET PO PRN (20:00)
[2019-08-24] MEDS ORDERED: CLONIDINE 0.1MG TABLET PO PRN (20:00)
[2019-08-24] MEDS: ATORVASTATIN CALCIUM 40MG TABLET PO SCH (21:41)
[2019-08-24] MEDS: IPRATROPIUM BROMIDE (0.02%) 0.5MG/2.5ML NEB HHN SCH (21:51)
[2019-08-24] MEDS: BUDESONIDE 0.5MG/2ML NEB HHN SCH (21:52)
[2019-08-25] MEDS: DILTIAZEM HCL 60MG TABLET PO SCH ×5 (00:27→23:31)
[2019-08-25] MEDS: IPRATROPIUM BROMIDE (0.02%) 0.5MG/2.5ML NEB HHN SCH ×4 (01:29→20:57)
[2019-08-25 07:20] LABS: BASOPHILS % 0.5 % (0.0-2.0); EOSINOPHILS % 4.8 % (0.0-5.0); HEMATOCRIT. 33.9 % (36.0-48.0); HEMOGLOBIN. 10.8 g/dL (12.0-16.0); LYMPHOCYTES % 32.9 % (20.0-50.0); MEAN CORPUSCULAR HEMOGLOBIN 27.6 pg (28.0-32.0); MEAN CORPUSCULAR VOLUME 86.8 fL (81.0-99.0); MEAN PLATELET VOLUME 8.3 fl (7.4-10.4); NEUTROPHILS % 47.8 % (40.0-76.0); PLATELET 168 x1000/uL (130-400); RED BLOOD CELL COUNT 3.91 mill/uL (4.2-5.4); RED CELL DISTRIBUTION WIDTH 19.3 % (11.6-14.6)
[2019-08-25 07:24] LABS: CHLORIDE 109 mEq/L (98-107)
[2019-08-25] MEDS: BUDESONIDE 0.5MG/2ML NEB HHN SCH ×2 (07:25→20:57)
[2019-08-25 08:21] VITALS: BP 115/70
[2019-08-25] MEDS: FUROSEMIDE 40MG/4ML VIAL IVP SCH ×2 (09:00→09:45)
[2019-08-25] MEDS: APIXABAN 5 MG TABLET PO SCH ×2 (09:45→17:14)
[2019-08-25] MEDS: ASPIRIN 81MG TABLET PO SCH (09:45)
[2019-08-25] MEDS: DOCUSATE SODIUM 250MG CAPSULE PO SCH (16:00)
[2019-08-25] MEDS ORDERED: SORBITOL 70% SOLN 30ML PO NR (16:00)
[2019-08-25 20:00] VITALS: BP 131/81
[2019-08-25] MEDS: ATORVASTATIN CALCIUM 40MG TABLET PO SCH (20:39)
[2019-08-26] MEDS: IPRATROPIUM BROMIDE (0.02%) 0.5MG/2.5ML NEB HHN SCH ×4 (02:09→20:56)
[2019-08-26] MEDS: DILTIAZEM HCL 60MG TABLET PO SCH ×3 (06:35→18:00)
[2019-08-26] MEDS: BUDESONIDE 0.5MG/2ML NEB HHN SCH ×2 (07:42→20:56)
[2019-08-26 08:16] VITALS: BP 127/87
[2019-08-26] MEDS: APIXABAN 5 MG TABLET PO SCH ×2 (09:05→16:14)
[2019-08-26] MEDS: DOCUSATE SODIUM 250MG CAPSULE PO SCH (09:05)
[2019-08-26] MEDS: ASPIRIN 81MG TABLET PO SCH (09:05)
[2019-08-26] MEDS: FUROSEMIDE 40MG TABLET PO SCH (09:05)
[2019-08-26 17:59] LABS: T4 FREE 0.95 ng/dL (0.76-1.46)
[2019-08-26 20:00] VITALS: BP 118/67
[2019-08-26] MEDS: ATORVASTATIN CALCIUM 40MG TABLET PO SCH (20:49)
[2019-08-27] MEDS: IPRATROPIUM BROMIDE (0.02%) 0.5MG/2.5ML NEB HHN SCH ×4 (01:10→22:17)
[2019-08-27] MEDS: DILTIAZEM HCL 60MG TABLET PO SCH ×4 (06:00→17:14)
[2019-08-27 07:54] LABS: CHLORIDE 109 mEq/L (98-107)
[2019-08-27 08:00] VITALS: BP 127/66
[2019-08-27 08:07] LABS: FOLIC ACID (FOLATE) SERUM 9.1 ng/mL (>5.38); PHOSPHORUS 4.1 mg/dL (2.5-4.9)
[2019-08-27 08:08] LABS: TOTAL IRON BINDING CAPACITY 391 ug/dL (250-450)
[2019-08-27] MEDS: BUDESONIDE 0.5MG/2ML NEB HHN SCH ×2 (08:09→22:14)
[2019-08-27] MEDS: ASPIRIN 81MG TABLET PO SCH (09:23)
[2019-08-27] MEDS: DOCUSATE SODIUM 250MG CAPSULE PO SCH (09:24)
[2019-08-27] MEDS: FUROSEMIDE 40MG TABLET PO SCH (09:24)
[2019-08-27] MEDS: APIXABAN 5 MG TABLET PO SCH ×2 (11:54→17:14)
[2019-08-27] MEDS: LACTULOSE 20G/30ML UDC PO SCH ×2 (14:42→21:32)
[2019-08-27] MEDS: CYANOCOBALAMIN 1000MCG/ML VIAL IM SCH (14:43)
[2019-08-27 17:46] LABS: BASOPHILS % 0.4 % (0.0-2.0); EOSINOPHILS % 1.1 % (0.0-5.0); HEMATOCRIT. 36.7 % (36.0-48.0); HEMOGLOBIN. 11.8 g/dL (12.0-16.0); LYMPHOCYTES % 18.5 % (20.0-50.0); MEAN CORPUSCULAR HEMOGLOBIN 27.8 pg (28.0-32.0); MEAN CORPUSCULAR VOLUME 86.2 fL (81.0-99.0); MEAN PLATELET VOLUME 8.4 fl (7.4-10.4); MONOCYTES % 14.3 % (2.0-8.0); NEUTROPHILS % 65.7 % (40.0-76.0); PLATELET 159 x1000/uL (130-400); RED BLOOD CELL COUNT 4.25 mill/uL (4.2-5.4); RED CELL DISTRIBUTION WIDTH 19.1 % (11.6-14.6)
[2019-08-27 20:00] VITALS: BP 122/64
[2019-08-27] MEDS: ATORVASTATIN CALCIUM 40MG TABLET PO SCH (21:32)
[2019-08-27] MEDS ORDERED: BUDESONIDE 0.5MG/2ML NEB ONE (22:10)
[2019-08-28] MEDS: IPRATROPIUM BROMIDE (0.02%) 0.5MG/2.5ML NEB HHN SCH ×5 (03:07→21:20)
[2019-08-28] MEDS: DILTIAZEM HCL 60MG TABLET PO SCH ×5 (05:16→23:59)
[2019-08-28] MEDS: LACTULOSE 20G/30ML UDC PO SCH ×2 (05:16→13:15)
[2019-08-28 08:14] VITALS: BP 100/67
[2019-08-28] MEDS: ASPIRIN 81MG TABLET PO SCH (09:00)
[2019-08-28] MEDS: FUROSEMIDE 40MG TABLET PO SCH (09:59)
[2019-08-28] MEDS: APIXABAN 5 MG TABLET PO SCH ×2 (09:59→20:56)
[2019-08-28] MEDS: CYANOCOBALAMIN 1000MCG/ML VIAL IM SCH (09:59)
[2019-08-28] MEDS: DOCUSATE SODIUM 250MG CAPSULE PO SCH (09:59)
[2019-08-28 20:00] VITALS: BP 133/81
[2019-08-28] MEDS: ATORVASTATIN CALCIUM 40MG TABLET PO SCH (20:56)
[2019-08-29] MEDS: IPRATROPIUM BROMIDE (0.02%) 0.5MG/2.5ML NEB HHN SCH ×4 (01:20→21:24)
[2019-08-29] MEDS: DILTIAZEM HCL 60MG TABLET PO SCH ×3 (06:25→17:12)
[2019-08-29 07:36] LABS: CHLORIDE 108 mEq/L (98-107)
[2019-08-29 07:39] LABS: BASOPHILS % 0.3 % (0.0-2.0); EOSINOPHILS % 1.8 % (0.0-5.0); HEMATOCRIT. 36.7 % (36.0-48.0); HEMOGLOBIN. 12.1 g/dL (12.0-16.0); LYMPHOCYTES % 20.6 % (20.0-50.0); MEAN CORPUSCULAR HEMOGLOBIN 28.2 pg (28.0-32.0); MEAN CORPUSCULAR VOLUME 85.6 fL (81.0-99.0); MEAN PLATELET VOLUME 8.7 fl (7.4-10.4); MONOCYTES % 13.2 % (2.0-8.0); NEUTROPHILS % 64.1 % (40.0-76.0); PLATELET 163 x1000/uL (130-400); RED BLOOD CELL COUNT 4.28 mill/uL (4.2-5.4); RED CELL DISTRIBUTION WIDTH 18.9 % (11.6-14.6)
[2019-08-29 08:00] VITALS: BP 114/68
[2019-08-29] MEDS: ASPIRIN 81MG TABLET PO SCH (10:27)
[2019-08-29] MEDS: FUROSEMIDE 40MG TABLET PO SCH (10:27)
[2019-08-29] MEDS: APIXABAN 5 MG TABLET PO SCH ×2 (10:27→17:12)
[2019-08-29] MEDS: LACTULOSE 20G/30ML UDC PO SCH (10:27)
[2019-08-29] MEDS: DOCUSATE SODIUM 250MG CAPSULE PO SCH (10:27)
[2019-08-29] MEDS: CYANOCOBALAMIN 1000MCG/ML VIAL IM SCH (10:28)
[2019-08-29 20:00] VITALS: BP 114/70
[2019-08-29] MEDS: ATORVASTATIN CALCIUM 40MG TABLET PO SCH (20:31)
[2019-08-30] MEDS: IPRATROPIUM BROMIDE (0.02%) 0.5MG/2.5ML NEB HHN SCH ×4 (02:33→20:08)
[2019-08-30] MEDS: DILTIAZEM HCL 60MG TABLET PO SCH ×4 (05:59→17:30)
[2019-08-30 06:52] LABS: BASOPHILS % 0.4 % (0.0-2.0); EOSINOPHILS % 2.6 % (0.0-5.0); HEMATOCRIT. 34.5 % (36.0-48.0); HEMOGLOBIN. 11.4 g/dL (12.0-16.0); LYMPHOCYTES % 16.2 % (20.0-50.0); MEAN CORPUSCULAR HEMOGLOBIN 28.4 pg (28.0-32.0); MEAN CORPUSCULAR VOLUME 86.3 fL (81.0-99.0); MEAN PLATELET VOLUME 8.8 fl (7.4-10.4); MONOCYTES % 13.6 % (2.0-8.0); NEUTROPHILS % 67.2 % (40.0-76.0); PLATELET 150 x1000/uL (130-400); RED CELL DISTRIBUTION WIDTH 18.4 % (11.6-14.6)
[2019-08-30 07:59] VITALS: BP 116/75
[2019-08-30] MEDS: ASPIRIN 81MG TABLET PO SCH (08:44)
[2019-08-30] MEDS: FUROSEMIDE 40MG TABLET PO SCH (08:44)
[2019-08-30] MEDS: DOCUSATE SODIUM 250MG CAPSULE PO SCH (08:44)
[2019-08-30] MEDS: CYANOCOBALAMIN 1000MCG/ML VIAL IM SCH (08:44)
[2019-08-30] MEDS: APIXABAN 5 MG TABLET PO SCH ×2 (08:44→16:42)
[2019-08-30] MEDS: LACTULOSE 20G/30ML UDC PO SCH (08:44)
[2019-08-30 20:00] VITALS: BP 127/62
[2019-08-30] MEDS: ATORVASTATIN CALCIUM 40MG TABLET PO SCH (20:52)
[2019-08-31] MEDS: IPRATROPIUM BROMIDE (0.02%) 0.5MG/2.5ML NEB HHN SCH ×3 (02:00→21:34)
[2019-08-31] MEDS: DILTIAZEM HCL 60MG TABLET PO SCH ×5 (05:49→23:19)
[2019-08-31 08:00] VITALS: BP 109/55
[2019-08-31] MEDS: APIXABAN 5 MG TABLET PO SCH (08:44)
[2019-08-31] MEDS: LEVOTHYROXINE SODIUM 25MCG TABLET PO SCH (08:44)
[2019-08-31] MEDS: ASPIRIN 81MG TABLET PO SCH (08:44)
[2019-08-31] MEDS: DOCUSATE SODIUM 250MG CAPSULE PO SCH (08:44)
[2019-08-31] MEDS: CYANOCOBALAMIN 1000MCG/ML VIAL IM SCH (08:44)
[2019-08-31] MEDS: FUROSEMIDE 40MG TABLET PO SCH (08:44)
[2019-08-31] MEDS: LACTULOSE 20G/30ML UDC PO SCH (09:00)
[2019-08-31 18:26] LABS: HEMATOCRIT 37.6 % (36.0-48.0); HEMOGLOBIN 12.4 g/dL (12.0-16.0); MEAN CORPUSCULAR HEMOGLOBIN 28.7 pg (28.0-32.0); PLATELET 160 x1000/uL (130-400); RED BLOOD CELL COUNT 4.32 mill/uL (4.2-5.4); RED CELL DISTRIBUTION WIDTH 18.8 % (11.6-14.6)
[2019-08-31 20:00] VITALS: BP 106/66
[2019-08-31] MEDS: ATORVASTATIN CALCIUM 40MG TABLET PO SCH (20:46)
[2019-09-01] MEDS: IPRATROPIUM BROMIDE (0.02%) 0.5MG/2.5ML NEB HHN SCH ×3 (02:18→13:15)
[2019-09-01 04:09] LABS: 25-HYDROXY VITAMIN D3 9.1 ng/mL (.)
[2019-09-01] MEDS: DILTIAZEM HCL 60MG TABLET PO SCH ×2 (05:44→11:56)
[2019-09-01 07:14] LABS: BASOPHILS % 0.4 % (0.0-2.0); EOSINOPHILS % 3.2 % (0.0-5.0); HEMATOCRIT. 36.3 % (36.0-48.0); HEMOGLOBIN. 11.7 g/dL (12.0-16.0); LYMPHOCYTES % 20.3 % (20.0-50.0); MEAN CORPUSCULAR HEMOGLOBIN 27.8 pg (28.0-32.0); MEAN CORPUSCULAR VOLUME 86.6 fL (81.0-99.0); MEAN PLATELET VOLUME 8.8 fl (7.4-10.4); MONOCYTES % 11.7 % (2.0-8.0); NEUTROPHILS % 64.4 % (40.0-76.0); PLATELET 151 x1000/uL (130-400); RED BLOOD CELL COUNT 4.19 mill/uL (4.2-5.4); RED CELL DISTRIBUTION WIDTH 18.7 % (11.6-14.6)
[2019-09-01 08:05] VITALS: BP 81/43
[2019-09-01] MEDS: FUROSEMIDE 40MG TABLET PO SCH (08:26)
[2019-09-01] MEDS: LACTULOSE 20G/30ML UDC PO SCH (08:27)
[2019-09-01] MEDS: CYANOCOBALAMIN 1000MCG/ML VIAL IM SCH (08:27)
[2019-09-01] MEDS: LEVOTHYROXINE SODIUM 25MCG TABLET PO SCH (08:27)
[2019-09-01] MEDS: ASPIRIN 81MG TABLET PO SCH (08:27)
[2019-09-01] MEDS: DOCUSATE SODIUM 250MG CAPSULE PO SCH (08:28)
[2019-09-01 11:54] VITALS: BP 115/62
[2019-09-01 16:00] VITALS: BP 108/72
[2019-09-09] MEDS ORDERED: CYANOCOBALAMIN 1000MCG/ML VIAL IM SCH (09:00)
== END 2019-09-01 18:15 | disposition home health service (06) | DRG 190 ==
PROVIDERS: ADMIT Physical Medicine & Rehabilitation Spinal Cord Injury Medicine; ATTEND Family Medicine Adult Medicine
PROC: 4A10X4Z Monitoring of Central Nervous Electrical Activity, External Approach (ICD-10-PCS; principal; 2019-08-31)
DX: J44.1 Chronic obstructive pulmonary disease with (acute) exacerbation (principal); G92 Toxic encephalopathy; I50.23 Acute on chronic systolic (congestive) heart failure; J96.00 Acute respiratory failure, unspecified whether with hypoxia or hypercapnia; K57.31 Diverticulosis of large intestine without perforation or abscess with bleeding; I13.0 Hypertensive heart and chronic kidney disease with heart failure and stage 1 through stage 4 chronic kidney disease, or unspecified chronic kidney disease; I42.9 Cardiomyopathy, unspecified; I48.19 Other persistent atrial fibrillation; R26.9 Unspecified abnormalities of gait and mobility; F03.90 Unspecified dementia, unspecified severity, without behavioral disturbance, psychotic disturbance, mood disturbance, and anxiety; E03.9 Hypothyroidism, unspecified; I27.20 Pulmonary hypertension, unspecified; I25.10 Atherosclerotic heart disease of native coronary artery without angina pectoris; N18.9 Chronic kidney disease, unspecified; E87.8 Other disorders of electrolyte and fluid balance, not elsewhere classified; E78.5 Hyperlipidemia, unspecified; R53.81 Other malaise; E78.00 Pure hypercholesterolemia, unspecified; D64.9 Anemia, unspecified; E53.8 Deficiency of other specified B group vitamins; B35.1 Tinea unguium; I73.9 Peripheral vascular disease, unspecified; K59.00 Constipation, unspecified; L60.3 Nail dystrophy; M20.32 Hallux varus (acquired), left foot; L57.0 Actinic keratosis; M20.31 Hallux varus (acquired), right foot; M77.52 Other enthesopathy of left foot and ankle; L85.9 Epidermal thickening, unspecified; M77.51 Other enthesopathy of right foot and ankle; Z86.73 Personal history of transient ischemic attack (TIA), and cerebral infarction without residual deficits; Z95.1 Presence of aortocoronary bypass graft; Z95.0 Presence of cardiac pacemaker; Z87.891 Personal history of nicotine dependence; Z79.01 Long term (current) use of anticoagulants; Z79.82 Long term (current) use of aspirin; Z79.899 Other long term (current) drug therapy
CPT/HCPCS: 36415; 78278; 80048; 82140; 82270; 82306; 82607; 82728; 82746; 83036; 83540; 83550; 83735; 84100; 84134; 84439; 84443; 84481; 85027; 92523; 93970; 94640; 97110; 97116; 97150; 97163; 97167; 97530; 97535; A9560; G0515; J1940; J3420; J7620; J7626

== ENCOUNTER 2019-11-06 08:27 | Inpatient (IN) | payer MEDICARE, OTHER ==
[~2019-11-06] VITALS: Ht 162.6 cm; Wt 80.7 kg
[~2019-11-06 08:27] MED LIST changes: -APIX2.5T PO
[2019-11-06] MEDS ORDERED: IPRATROPIUM BROMIDE (0.02%) 0.5MG/2.5ML NEB HHN STA (08:58)
[2019-11-06] MEDS ORDERED: ALBUTEROL (0.083%) 2.5MG/3ML NEB HHN STA (08:58)
[2019-11-06] MEDS ORDERED: MAGNESIUM 2 G PREMIX 50 ML IV STA (08:58)
[2019-11-06] MEDS ORDERED: METHYLPREDNISOLONE SOD SUCC 125 MG/2 ML VIAL IV STA (08:58)
[2019-11-06 09:20] LABS: BASOPHILS % 0.8 % (0.0-2.0); EOSINOPHILS % 3.7 % (0.0-5.0); HEMATOCRIT. 37.8 % (36.0-48.0); LYMPHOCYTES % 28.6 % (20.0-50.0); MEAN CORPUSCULAR HEMOGLOBIN 27.8 pg (28.0-32.0); MEAN CORPUSCULAR VOLUME 87.5 fL (81.0-99.0); MEAN PLATELET VOLUME 8.1 fl (7.4-10.4); MONOCYTES % 10.6 % (2.0-8.0); NEUTROPHILS % 56.3 % (40.0-76.0); PLATELET 181 x1000/uL (130-400); RED BLOOD CELL COUNT 4.32 mill/uL (4.2-5.4); RED CELL DISTRIBUTION WIDTH 17.8 % (11.6-14.6)
[2019-11-06 09:25] LABS: CHLORIDE 112 mEq/L (98-107)
[2019-11-06 09:48] LABS: PROTHROMBIN TIME 10.7 sec (9.6-11.0)
[2019-11-06] MEDS ORDERED: LEVOFLOXACIN 500MG PREMIX 100 ML IV ONE (10:45)
[2019-11-06] MEDS ORDERED: FUROSEMIDE 20MG/2ML VIAL IVP ONE (10:45)
[2019-11-06] MEDS ORDERED: OSELTAMIVIR 75MG CAPSULE PO ONE (11:30)
[2019-11-06] MEDS ORDERED: SPIRONOLACTONE 25MG TABLET PO SCH (14:15)
[2019-11-06] MEDS: DILTIAZEM HCL 60MG TABLET PO SCH (17:29)
[2019-11-06] MEDS ORDERED: FUROSEMIDE 40MG/4ML VIAL IVP NR (17:45)
[2019-11-06 20:36] LABS: CLARITY URINE CLEAR (CLEAR); COLOR URINE YELLOW (YELLOW); KETONES URINE NEGATIVE (NEGATIVE); LEUKOCYTE ESTERASE URINE NEGATIVE (NEGATIVE); NITRITE URINE NEGATIVE (NEGATIVE); OCCULT BLOOD URINE NEGATIVE (NEGATIVE); PROTEIN URINE NEGATIVE (NEGATIVE); SPECIFIC GRAVITY URINE 1.006 (1.005-1.030); UROBILINOGEN URINE 0.2 E.U./dL (0.2-1.0)
[2019-11-07] MEDS ORDERED: DILTIAZEM HCL 60MG TABLET PO SCH (00:15)
[2019-11-07 05:10] LABS: BASOPHILS % 0.3 % (0.0-2.0); HEMOGLOBIN. 11.4 g/dL (12.0-16.0); LYMPHOCYTES % 7.5 % (20.0-50.0); MEAN CORPUSCULAR HEMOGLOBIN 27.5 pg (28.0-32.0); MEAN CORPUSCULAR VOLUME 86.6 fL (81.0-99.0); MEAN PLATELET VOLUME 8.2 fl (7.4-10.4); MONOCYTES % 7.2 % (2.0-8.0); PLATELET 181 x1000/uL (130-400); RED BLOOD CELL COUNT 4.16 mill/uL (4.2-5.4); RED CELL DISTRIBUTION WIDTH 17.1 % (11.6-14.6)
[2019-11-07] MEDS: DILTIAZEM HCL 60MG TABLET PO SCH ×4 (06:00→17:35)
[2019-11-07] MEDS: FUROSEMIDE 40MG/4ML VIAL IVP SCH ×2 (08:11→17:34)
[2019-11-07 09:00] VITALS: BP 111/74
[2019-11-07] MEDS: SPIRONOLACTONE 25MG TABLET PO SCH (09:00)
[2019-11-07 12:00] VITALS: BP 100/66
[2019-11-07 16:00] VITALS: BP 110/104
[2019-11-07] MEDS ORDERED: IPRATROPIUM/ALBUTEROL 0.5-3(2.5)MG/3ML NEB HHN PRN (16:15)
[2019-11-07] MEDS ORDERED: APIXABAN 5 MG TABLET PO SCH (17:00)
[2019-11-07] MEDS: ENOXAPARIN 60MG/0.6ML SYR SUBCUT SCH (17:34)
[2019-11-07 20:00] VITALS: BP 107/66
[2019-11-07] MEDS: IPRATROPIUM/ALBUTEROL 0.5-3(2.5)MG/3ML NEB HHN SCH (21:53)
[2019-11-07] MEDS: BUDESONIDE 0.5MG/2ML NEB HHN SCH (21:53)
[2019-11-08] VITALS: BP 116/71
[2019-11-08] MEDS: DILTIAZEM HCL 60MG TABLET PO SCH ×4 (00:43→17:21)
[2019-11-08] MEDS: IPRATROPIUM/ALBUTEROL 0.5-3(2.5)MG/3ML NEB HHN SCH ×4 (02:28→21:50)
[2019-11-08 04:00] VITALS: BP 111/72
[2019-11-08] MEDS: ENOXAPARIN 60MG/0.6ML SYR SUBCUT SCH (06:34)
[2019-11-08] MEDS: FUROSEMIDE 40MG/4ML VIAL IVP SCH ×2 (06:34→17:21)
[2019-11-08 07:23] LABS: BASOPHILS % 0.4 % (0.0-2.0); EOSINOPHILS % 1.4 % (0.0-5.0); HEMATOCRIT. 32.4 % (36.0-48.0); HEMOGLOBIN. 10.9 g/dL (12.0-16.0); LYMPHOCYTES % 21.2 % (20.0-50.0); MEAN CORPUSCULAR HEMOGLOBIN 28.7 pg (28.0-32.0); MEAN CORPUSCULAR VOLUME 85.5 fL (81.0-99.0); MEAN PLATELET VOLUME 8.5 fl (7.4-10.4); MONOCYTES % 9.1 % (2.0-8.0); NEUTROPHILS % 67.9 % (40.0-76.0); PLATELET 169 x1000/uL (130-400); RED BLOOD CELL COUNT 3.79 mill/uL (4.2-5.4); RED CELL DISTRIBUTION WIDTH 17.5 % (11.6-14.6)
[2019-11-08 08:00] VITALS: BP 117/66
[2019-11-08] MEDS: BUDESONIDE 0.5MG/2ML NEB HHN SCH ×2 (08:50→21:50)
[2019-11-08] MEDS: SPIRONOLACTONE 25MG TABLET PO SCH (09:17)
[2019-11-08 12:00] VITALS: BP 145/67
[2019-11-08 16:00] VITALS: BP 102/62
[2019-11-08 20:00] VITALS: BP 107/60
[2019-11-08] MEDS ORDERED: LACTULOSE 20G/30ML UDC PO NR (22:00)
[2019-11-09] VITALS: BP 108/56
[2019-11-09] MEDS ORDERED: HYDROCODONE/ACETAMINOPHEN 5/325MG TABLET PO PRN (01:45)
[2019-11-09] MEDS: IPRATROPIUM/ALBUTEROL 0.5-3(2.5)MG/3ML NEB HHN SCH ×3 (02:07→14:24)
[2019-11-09 04:00] VITALS: BP 117/67
[2019-11-09] MEDS: DILTIAZEM HCL 60MG TABLET PO SCH ×4 (05:24→17:48)
[2019-11-09] MEDS ORDERED: ENOXAPARIN 60MG/0.6ML SYR SUBCUT SCH (06:00)
[2019-11-09] MEDS: FUROSEMIDE 40MG/4ML VIAL IVP SCH ×2 (06:25→17:48)
[2019-11-09 07:27] LABS: BASOPHILS % 0.6 % (0.0-2.0); EOSINOPHILS % 2.7 % (0.0-5.0); HEMATOCRIT. 33.8 % (36.0-48.0); HEMOGLOBIN. 10.9 g/dL (12.0-16.0); LYMPHOCYTES % 19.8 % (20.0-50.0); MEAN CORPUSCULAR HEMOGLOBIN 27.6 pg (28.0-32.0); MEAN CORPUSCULAR VOLUME 85.4 fL (81.0-99.0); MEAN PLATELET VOLUME 8.8 fl (7.4-10.4); MONOCYTES % 11.2 % (2.0-8.0); NEUTROPHILS % 65.7 % (40.0-76.0); PLATELET 185 x1000/uL (130-400); RED BLOOD CELL COUNT 3.96 mill/uL (4.2-5.4); RED CELL DISTRIBUTION WIDTH 17.4 % (11.6-14.6)
[2019-11-09 08:00] VITALS: BP 119/62
[2019-11-09] MEDS: DOCUSATE SODIUM 100MG CAPSULE PO SCH ×2 (08:33→17:48)
[2019-11-09] MEDS: SPIRONOLACTONE 25MG TABLET PO SCH (08:34)
[2019-11-09] MEDS: LEVOTHYROXINE SODIUM 25MCG TABLET PO SCH (08:34)
[2019-11-09] MEDS: BUDESONIDE 0.5MG/2ML NEB HHN SCH (09:32)
[2019-11-09 12:00] VITALS: BP 105/61
[2019-11-09 16:00] VITALS: BP 127/73
[2019-11-09 20:00] VITALS: BP 101/66
[2019-11-10] VITALS: BP 117/63
[2019-11-10] MEDS: DILTIAZEM HCL 60MG TABLET PO SCH ×4 (00:21→16:58)
[2019-11-10 04:00] VITALS: BP 126/61
[2019-11-10] MEDS: FUROSEMIDE 40MG/4ML VIAL IVP SCH ×2 (06:16→16:58)
[2019-11-10] MEDS: LEVOTHYROXINE SODIUM 25MCG TABLET PO SCH (06:16)
[2019-11-10] MEDS: BUDESONIDE 0.5MG/2ML NEB HHN SCH (07:55)
[2019-11-10] MEDS: IPRATROPIUM/ALBUTEROL 0.5-3(2.5)MG/3ML NEB HHN SCH ×2 (07:55→13:31)
[2019-11-10 07:58] VITALS: BP 111/65
[2019-11-10] MEDS: DOCUSATE SODIUM 100MG CAPSULE PO SCH ×2 (08:22→16:58)
[2019-11-10] MEDS: SPIRONOLACTONE 25MG TABLET PO SCH (08:22)
[2019-11-10] MEDS ORDERED: FURO-151 PO (10:49)
[2019-11-10] MEDS ORDERED: PULM50 HHN (10:49)
[2019-11-10 12:00] VITALS: BP 106/66
[2019-11-10 16:00] VITALS: BP 129/81
[2019-11-10 20:00] VITALS: BP 95/68
[2019-11-11] VITALS: BP_SYST 120; BP_SYST 95; BP_DIAS 68; BP_DIAS 69
[2019-11-11 04:00] VITALS: BP 121/70
[2019-11-11] MEDS: FUROSEMIDE 40MG/4ML VIAL IVP SCH (06:01)
[2019-11-11] MEDS: DILTIAZEM HCL 60MG TABLET PO SCH ×4 (06:03→17:45)
[2019-11-11] MEDS: LEVOTHYROXINE SODIUM 25MCG TABLET PO SCH (06:03)
[2019-11-11 08:00] VITALS: BP 126/90
[2019-11-11] MEDS: IPRATROPIUM/ALBUTEROL 0.5-3(2.5)MG/3ML NEB HHN SCH ×2 (09:09→12:57)
[2019-11-11] MEDS: DOCUSATE SODIUM 100MG CAPSULE PO SCH ×2 (09:20→17:45)
[2019-11-11] MEDS: SPIRONOLACTONE 25MG TABLET PO SCH (09:20)
[2019-11-11 11:15] VITALS: BP 110/75
[2019-11-11] MEDS ORDERED: DOXY150T5 MT (11:40)
[2019-11-11 12:02] VITALS: BP 110/75
[2019-11-11] MEDS ORDERED: APIXABAN 5 MG TABLET PO SCH (15:00)
[2019-11-11 15:54] LABS: HEMOGLOBIN 12.3 g/dL (12.0-16.0); MEAN CORPUSCULAR HEMOGLOBIN 27.5 pg (28.0-32.0); MEAN CORPUSCULAR VOLUME 84.7 fL (81.0-99.0); PLATELET 195 x1000/uL (130-400); RED BLOOD CELL COUNT 4.49 mill/uL (4.2-5.4); RED CELL DISTRIBUTION WIDTH 17.1 % (11.6-14.6)
[2019-11-11 18:00] VITALS: BP 98/68
[2019-11-12] MEDS ORDERED: FUROSEMIDE 40MG/4ML VIAL IVP SCH (09:00)
== END 2019-11-11 19:01 | disposition home health service (06) | DRG 291 ==
LOC: ER 08:27 → 8WST 12:30 → EDBEDREQ 12:33 → EDBEDREQTM 12:33 → ENRESERV 11-07 07:22 → 8WST 11-07 09:14
PROVIDERS: ADMIT Family Medicine Adult Medicine; ATTEND Family Medicine Adult Medicine
DX: I13.0 Hypertensive heart and chronic kidney disease with heart failure and stage 1 through stage 4 chronic kidney disease, or unspecified chronic kidney disease (principal); J18.9 Pneumonia, unspecified organism; J96.00 Acute respiratory failure, unspecified whether with hypoxia or hypercapnia; I50.43 Acute on chronic combined systolic (congestive) and diastolic (congestive) heart failure; J44.1 Chronic obstructive pulmonary disease with (acute) exacerbation; J44.0 Chronic obstructive pulmonary disease with (acute) lower respiratory infection; N17.9 Acute kidney failure, unspecified; E03.9 Hypothyroidism, unspecified; D64.9 Anemia, unspecified; E11.22 Type 2 diabetes mellitus with diabetic chronic kidney disease; I49.5 Sick sinus syndrome; I27.20 Pulmonary hypertension, unspecified; N18.9 Chronic kidney disease, unspecified; E78.00 Pure hypercholesterolemia, unspecified; E78.5 Hyperlipidemia, unspecified; F03.90 Unspecified dementia, unspecified severity, without behavioral disturbance, psychotic disturbance, mood disturbance, and anxiety; I25.10 Atherosclerotic heart disease of native coronary artery without angina pectoris; I25.5 Ischemic cardiomyopathy; I48.0 Paroxysmal atrial fibrillation; T50.2X5A Adverse effect of carbonic-anhydrase inhibitors, benzothiadiazides and other diuretics, initial encounter; Y92.89 Other specified places as the place of occurrence of the external cause; Z79.01 Long term (current) use of anticoagulants; Z79.02 Long term (current) use of antithrombotics/antiplatelets; Z95.0 Presence of cardiac pacemaker; Z79.890 Hormone replacement therapy; Z79.899 Other long term (current) drug therapy; Z82.49 Family history of ischemic heart disease and other diseases of the circulatory system; Z95.1 Presence of aortocoronary bypass graft; Z79.82 Long term (current) use of aspirin
CPT/HCPCS: 36415; 71045; 76604; 80048; 80053; 81003; 82962; 83605; 83735; 83880; 84145; 84484; 85025; 85027; 87804; 93005; 94640; 96365; 96366; 96372; 96375; 97162; 99291; C1893; J1650; J1940; J1956; J2930; J3475; J7611; J7620; J7626

== ENCOUNTER 2019-12-02 09:08 | Inpatient (IN) | payer MEDICARE, OTHER ==
[~2019-12-02] VITALS: Ht 162.6 cm; Wt 86.2 kg
[~2019-12-02 09:08] MED LIST changes: +DOXY150T5 MT
[2019-12-02] MEDS ORDERED: ALBUTEROL (0.083%) 2.5MG/3ML NEB HHN STA (10:20)
[2019-12-02] MEDS ORDERED: PREDNISONE 20MG TABLET PO STA (10:20)
[2019-12-02] MEDS ORDERED: IPRATROPIUM BROMIDE (0.02%) 0.5MG/2.5ML NEB HHN STA (10:20)
[2019-12-02] MEDS ORDERED: FUROSEMIDE 40MG TABLET PO ONE (10:30)
[2019-12-02 11:51] LABS: BASOPHILS % 0.7 % (0.0-2.0); EOSINOPHILS % 1.9 % (0.0-5.0); HEMATOCRIT. 38.1 % (36.0-48.0); HEMOGLOBIN. 12.1 g/dL (12.0-16.0); LYMPHOCYTES % 20.3 % (20.0-50.0); MEAN CORPUSCULAR HEMOGLOBIN 27.7 pg (28.0-32.0); MEAN CORPUSCULAR VOLUME 87.2 fL (81.0-99.0); MEAN PLATELET VOLUME 8.3 fl (7.4-10.4); MONOCYTES % 9.9 % (2.0-8.0); NEUTROPHILS % 67.2 % (40.0-76.0); PLATELET 149 x1000/uL (130-400); RED BLOOD CELL COUNT 4.37 mill/uL (4.2-5.4); RED CELL DISTRIBUTION WIDTH 17.6 % (11.6-14.6)
[2019-12-02 11:59] LABS: CHLORIDE 113 mEq/L (98-107)
[2019-12-02] MEDS ORDERED: DILTIAZEM HCL 120MG CAPSULE CD 24HR PO ONE (13:30)
[2019-12-02] MEDS ORDERED: DILTIAZEM HCL 5MG/ML 5ML VIAL IV ONE (15:00)
[2019-12-02] MEDS ORDERED: MAGNESIUM 2 G PREMIX 50 ML IV ONE (15:00)
[2019-12-02 23:30] VITALS: BP 118/68
[2019-12-02] MEDS ORDERED: GUAIFENESIN 200MG/10ML SUGAR FREE UDC PO PRN (23:30)
[2019-12-02] MEDS ORDERED: ACETAMINOPHEN 325MG TABLET PO PRN (23:30)
[2019-12-02] MEDS ORDERED: ONDANSETRON HCL 4MG/2ML INJ IV PRN (23:30)
[2019-12-02] MEDS ORDERED: DEXTROSE 50% WATER 50ML SYRINGE IV PRN (23:30)
[2019-12-02] MEDS ORDERED: DOCUSATE SODIUM 100MG CAPSULE PO PRN (23:30)
[2019-12-03] MEDS: IPRATROPIUM BROMIDE (0.02%) 0.5MG/2.5ML NEB HHN SCH ×6 (00:52→20:32)
[2019-12-03] MEDS: APIXABAN 2.5 MG TABLET PO SCH ×3 (01:02→22:03)
[2019-12-03 04:00] VITALS: BP 149/74
[2019-12-03] MEDS: INSULIN LISPRO 100 UNITS/ML SUBCUT SCH ×4 (06:10→20:28)
[2019-12-03] MEDS: LEVOTHYROXINE SODIUM 25MCG TABLET PO SCH (06:10)
[2019-12-03] MEDS: METHYLPREDNISOLONE SOD SUCC 125 MG/2 ML VIAL IV SCH ×3 (06:10→22:03)
[2019-12-03] MEDS: BLOOD SUGAR DIAGNOSTIC STRIP TEST SCH ×4 (06:10→19:45)
[2019-12-03 07:41] LABS: BASOPHILS % 0.2 % (0.0-2.0); EOSINOPHILS % 0.1 % (0.0-5.0); HEMATOCRIT. 34.3 % (36.0-48.0); HEMOGLOBIN. 11.1 g/dL (12.0-16.0); LYMPHOCYTES % 11.5 % (20.0-50.0); MEAN CORPUSCULAR HEMOGLOBIN 27.9 pg (28.0-32.0); MEAN CORPUSCULAR VOLUME 86.2 fL (81.0-99.0); MEAN PLATELET VOLUME 8.7 fl (7.4-10.4); MONOCYTES % 11.9 % (2.0-8.0); NEUTROPHILS % 76.3 % (40.0-76.0); PLATELET 136 x1000/uL (130-400); RED BLOOD CELL COUNT 3.98 mill/uL (4.2-5.4); RED CELL DISTRIBUTION WIDTH 17.3 % (11.6-14.6)
[2019-12-03 07:46] LABS: CHLORIDE 114 mEq/L (98-107)
[2019-12-03 07:56] LABS: CREATINE KINASE 73 IU/L (26-192)
[2019-12-03 07:58] LABS: CREATINE KINASE MB FRACTION 4.1 ng/mL (0.5-3.6)
[2019-12-03 08:00] VITALS: BP 119/57
[2019-12-03] MEDS ORDERED: ENOXAPARIN 40MG/0.4ML SYR SUBCUT SCH (09:00)
[2019-12-03] MEDS: ASPIRIN 81MG EC TABLET PO SCH (10:24)
[2019-12-03] MEDS: DONEPEZIL HCL 5MG TABLET PO SCH (10:25)
[2019-12-03] MEDS: LOSARTAN POTASSIUM 25 MG TABLET PO SCH (10:25)
[2019-12-03] MEDS: FUROSEMIDE 40MG TABLET PO SCH ×2 (10:25→17:38)
[2019-12-03] MEDS: ATORVASTATIN CALCIUM 40MG TABLET PO SCH (10:26)
[2019-12-03] MEDS: CLOPIDOGREL 75MG TABLET PO SCH (10:27)
[2019-12-03 12:25] VITALS: BP 103/70
[2019-12-03 15:28] LABS: CREATINE KINASE 86 IU/L (26-192)
[2019-12-03 15:29] LABS: CREATINE KINASE MB FRACTION 4.5 ng/mL (0.5-3.6)
[2019-12-03 16:42] VITALS: BP 98/51
[2019-12-03 20:30] VITALS: BP 135/94
[2019-12-03] MEDS: CITALOPRAM HYDROBROMIDE 10MG TABLET PO SCH (22:02)
[2019-12-04] VITALS: BP 141/79
[2019-12-04] MEDS: IPRATROPIUM BROMIDE (0.02%) 0.5MG/2.5ML NEB HHN SCH ×6 (00:26→20:16)
[2019-12-04 04:00] VITALS: BP 148/89
[2019-12-04] MEDS: METHYLPREDNISOLONE SOD SUCC 125 MG/2 ML VIAL IV SCH ×3 (06:18→21:32)
[2019-12-04] MEDS: FUROSEMIDE 40MG TABLET PO SCH ×2 (06:18→18:04)
[2019-12-04] MEDS: LEVOTHYROXINE SODIUM 25MCG TABLET PO SCH (06:18)
[2019-12-04] MEDS: INSULIN LISPRO 100 UNITS/ML SUBCUT SCH ×4 (06:18→21:00)
[2019-12-04] MEDS: BLOOD SUGAR DIAGNOSTIC STRIP TEST SCH ×4 (06:18→19:47)
[2019-12-04 08:00] VITALS: BP 116/71
[2019-12-04] MEDS: ASPIRIN 81MG EC TABLET PO SCH (09:24)
[2019-12-04] MEDS: CITALOPRAM HYDROBROMIDE 10MG TABLET PO SCH (09:24)
[2019-12-04] MEDS: ATORVASTATIN CALCIUM 40MG TABLET PO SCH (09:24)
[2019-12-04] MEDS: DONEPEZIL HCL 5MG TABLET PO SCH (09:24)
[2019-12-04] MEDS: CLOPIDOGREL 75MG TABLET PO SCH (09:24)
[2019-12-04] MEDS: LOSARTAN POTASSIUM 25 MG TABLET PO SCH (09:24)
[2019-12-04] MEDS: APIXABAN 2.5 MG TABLET PO SCH ×2 (09:24→20:31)
[2019-12-04 12:00] VITALS: BP 130/88
[2019-12-04 16:00] VITALS: BP 138/88
[2019-12-04 20:00] VITALS: BP 115/81
[2019-12-05] VITALS: BP 125/78
[2019-12-05] MEDS: IPRATROPIUM BROMIDE (0.02%) 0.5MG/2.5ML NEB HHN SCH ×6 (01:48→19:59)
[2019-12-05 04:00] VITALS: BP 137/75
[2019-12-05] MEDS: BLOOD SUGAR DIAGNOSTIC STRIP TEST SCH ×4 (05:45→20:05)
[2019-12-05] MEDS: FUROSEMIDE 40MG TABLET PO SCH ×2 (06:02→18:05)
[2019-12-05] MEDS: METHYLPREDNISOLONE SOD SUCC 125 MG/2 ML VIAL IV SCH ×3 (06:02→21:00)
[2019-12-05] MEDS: INSULIN LISPRO 100 UNITS/ML SUBCUT SCH ×4 (06:03→20:05)
[2019-12-05] MEDS: LEVOTHYROXINE SODIUM 25MCG TABLET PO SCH (06:03)
[2019-12-05 08:00] VITALS: BP 104/74
[2019-12-05] MEDS: ASPIRIN 81MG EC TABLET PO SCH (09:22)
[2019-12-05] MEDS: ATORVASTATIN CALCIUM 40MG TABLET PO SCH (09:22)
[2019-12-05] MEDS: LOSARTAN POTASSIUM 25 MG TABLET PO SCH (09:22)
[2019-12-05] MEDS: CLOPIDOGREL 75MG TABLET PO SCH (09:22)
[2019-12-05] MEDS: CITALOPRAM HYDROBROMIDE 10MG TABLET PO SCH (09:23)
[2019-12-05] MEDS: APIXABAN 2.5 MG TABLET PO SCH ×2 (09:23→20:49)
[2019-12-05] MEDS: DONEPEZIL HCL 5MG TABLET PO SCH (09:31)
[2019-12-05 12:00] VITALS: BP 99/54
[2019-12-05 16:00] VITALS: BP 115/70
[2019-12-05 20:00] VITALS: BP 126/72
[2019-12-06] VITALS: BP 133/97
[2019-12-06] MEDS: IPRATROPIUM BROMIDE (0.02%) 0.5MG/2.5ML NEB HHN SCH ×5 (00:29→16:06)
[2019-12-06 04:00] VITALS: BP 126/78
[2019-12-06] MEDS: BLOOD SUGAR DIAGNOSTIC STRIP TEST SCH ×3 (05:48→16:45)
[2019-12-06] MEDS: INSULIN LISPRO 100 UNITS/ML SUBCUT SCH ×3 (06:15→17:15)
[2019-12-06] MEDS: LEVOTHYROXINE SODIUM 25MCG TABLET PO SCH (06:15)
[2019-12-06] MEDS: METHYLPREDNISOLONE SOD SUCC 125 MG/2 ML VIAL IV SCH ×2 (06:15→13:46)
[2019-12-06] MEDS: FUROSEMIDE 40MG TABLET PO SCH (06:15)
[2019-12-06 06:46] LABS: BASOPHILS % 0.1 % (0.0-2.0); HEMATOCRIT. 38.8 % (36.0-48.0); HEMOGLOBIN. 12.9 g/dL (12.0-16.0); LYMPHOCYTES % 8.5 % (20.0-50.0); MEAN CORPUSCULAR HEMOGLOBIN 27.9 pg (28.0-32.0); MEAN PLATELET VOLUME 8.5 fl (7.4-10.4); MONOCYTES % 5.8 % (2.0-8.0); NEUTROPHILS % 85.6 % (40.0-76.0); PLATELET 163 x1000/uL (130-400); RED BLOOD CELL COUNT 4.62 mill/uL (4.2-5.4); RED CELL DISTRIBUTION WIDTH 16.8 % (11.6-14.6)
[2019-12-06 08:00] VITALS: BP 101/71
[2019-12-06] MEDS: DONEPEZIL HCL 5MG TABLET PO SCH (09:24)
[2019-12-06] MEDS: CITALOPRAM HYDROBROMIDE 10MG TABLET PO SCH (09:24)
[2019-12-06] MEDS: APIXABAN 2.5 MG TABLET PO SCH (09:24)
[2019-12-06] MEDS: CLOPIDOGREL 75MG TABLET PO SCH (09:24)
[2019-12-06] MEDS: ATORVASTATIN CALCIUM 40MG TABLET PO SCH (09:24)
[2019-12-06] MEDS: ASPIRIN 81MG EC TABLET PO SCH (09:24)
[2019-12-06] MEDS: LOSARTAN POTASSIUM 25 MG TABLET PO SCH (09:24)
[2019-12-06 12:00] VITALS: BP 102/67
[2019-12-06 15:09] VITALS: BP 108/70
[2019-12-06 16:00] VITALS: BP 101/71
[2019-12-07] MEDS ORDERED: FUROSEMIDE 40MG TABLET PO SCH (09:00)
== END 2019-12-06 18:24 | disposition home or self-care (01) | DRG 190 ==
LOC: ER 09:08 → 5WST 15:28 → ENRESERV 21:48
PROVIDERS: ADMIT Internal Medicine; ATTEND Internal Medicine
DX: J44.1 Chronic obstructive pulmonary disease with (acute) exacerbation (principal); I50.23 Acute on chronic systolic (congestive) heart failure; I13.0 Hypertensive heart and chronic kidney disease with heart failure and stage 1 through stage 4 chronic kidney disease, or unspecified chronic kidney disease; I48.20 Chronic atrial fibrillation, unspecified; I42.9 Cardiomyopathy, unspecified; I25.10 Atherosclerotic heart disease of native coronary artery without angina pectoris; E03.9 Hypothyroidism, unspecified; E78.5 Hyperlipidemia, unspecified; F32.9 Major depressive disorder, single episode, unspecified; D64.9 Anemia, unspecified; E11.22 Type 2 diabetes mellitus with diabetic chronic kidney disease; E78.00 Pure hypercholesterolemia, unspecified; N18.9 Chronic kidney disease, unspecified; I49.5 Sick sinus syndrome; Z95.1 Presence of aortocoronary bypass graft; Z91.19 Patient's noncompliance with other medical treatment and regimen; Z91.14 Patient's other noncompliance with medication regimen; Z99.81 Dependence on supplemental oxygen; Z87.891 Personal history of nicotine dependence
CPT/HCPCS: 36415; 71045; 80048; 82550; 82553; 82962; 83036; 83735; 83880; 84443; 84484; 85025; 93005; 93970; 94640; 94644; 96365; 97162; 99291; J1815; J2930; J3475; J3490; J7512

== ENCOUNTER 2020-03-22 22:46 | Emergency (ER) | payer MEDICARE, OTHER ==
[~2020-03-22] VITALS: Ht 165.1 cm; Wt 91.0 kg
[~2020-03-22 22:46] MED LIST changes: +ASCO500T20 PO; +AZIT500T8 MT; -DOXY150T5 MT; -FURO-151 PO; +GUAI120017 MT; +P20 MT; +ZINC220C2 PO
[2020-03-22 23:13] LABS: BASOPHILS % 0.6 % (0.0-2.0); HEMATOCRIT. 35.5 % (36.0-48.0); HEMOGLOBIN. 11.3 g/dL (12.0-16.0); LYMPHOCYTES % 18.2 % (20.0-50.0); MEAN CORPUSCULAR HEMOGLOBIN 27.4 pg (28.0-32.0); MEAN CORPUSCULAR VOLUME 85.6 fL (81.0-99.0); MEAN PLATELET VOLUME 7.9 fl (7.4-10.4); MONOCYTES % 11.8 % (2.0-8.0); NEUTROPHILS % 67.4 % (40.0-76.0); PLATELET 182 x1000/uL (130-400); RED BLOOD CELL COUNT 4.14 mill/uL (4.2-5.4); RED CELL DISTRIBUTION WIDTH 18.6 % (11.6-14.6)
[2020-03-22 23:15] LABS: CHLORIDE 112 mEq/L (98-107)
[2020-03-22] MEDS ORDERED: FUROSEMIDE 40MG/4ML VIAL IV ONE (23:45)
[2020-03-22] MEDS ORDERED: ASPIRIN 81MG TABLET PO ONE (23:45)
[2020-03-23] MEDS ORDERED: ENOXAPARIN 100MG/ML SYR SUBCUT ONE (00:45)
[2020-03-23 04:36] VITALS: BP 134/91
== END 2020-03-23 05:33 | disposition short-term general hospital (02) ==
LOC: ER 22:46 → CANBEDREQ 03-23 06:10
DX: I11.0 Hypertensive heart disease with heart failure (principal); I50.9 Heart failure, unspecified; I48.20 Chronic atrial fibrillation, unspecified; E11.9 Type 2 diabetes mellitus without complications; Z79.899 Other long term (current) drug therapy; Z79.82 Long term (current) use of aspirin
CPT/HCPCS: 36415; 71045; 80053; 83880; 84484; 85025; 93005; 96372; 96374; 99285; J1650; J1940

== ENCOUNTER 2020-06-09 16:16 | Inpatient (IN) | payer BC, OTHER ==
[~2020-06-09] VITALS: Ht 162.6 cm; Wt 65.8 kg
[2020-06-09] MEDS ORDERED: SODIUM CHLORIDE 0.9% 1,000 ML IV ONE (17:28)
[2020-06-09] MEDS ORDERED: MORPHINE SULFATE 4 MG/ML CPJ (NOT FOR IM USE) IV STA (17:28)
[2020-06-09] MEDS ORDERED: ONDANSETRON HCL 4MG/2ML INJ IV STA (17:28)
[2020-06-09 17:59] LABS: CHLORIDE 112 mEq/L (98-107)
[2020-06-09 18:12] LABS: INR 1.1; PROTHROMBIN TIME 11.4 sec (9.6-11.0)
[2020-06-09 18:26] LABS: HEMATOCRIT. 44.1 % (36.0-48.0); HEMOGLOBIN. 13.8 g/dL (12.0-16.0); MEAN CORPUSCULAR HEMOGLOBIN 27.7 pg (28.0-32.0); MEAN CORPUSCULAR VOLUME 88.8 fL (81.0-99.0); MEAN PLATELET VOLUME 9.3 fl (7.4-10.4); PLATELET 126 x1000/uL (130-400); RED BLOOD CELL COUNT 4.96 mill/uL (4.2-5.4); RED CELL DISTRIBUTION WIDTH 23.2 % (11.6-14.6)
[2020-06-09] MEDS ORDERED: AMOXICILLIN/POTASSIUM CLAVULANATE 875/125MG TAB PO ONE (19:15)
[2020-06-09 21:10] LABS: PLATELET ESTIMATE NORMAL
[2020-06-09 23:15] VITALS: BP 128/66
[2020-06-10] MEDS ORDERED: VITAMIN D3 MT SCH (00:30)
[2020-06-10] MEDS ORDERED: ALENDRONATE SODIUM MT SCH (00:30)
[2020-06-10] MEDS ORDERED: [UNRECOGNIZED DRUG - OTHER] MT SCH (00:30)
[2020-06-10] MEDS ORDERED: DOCUSATE SODIUM 100MG CAPSULE PO PRN (00:30)
[2020-06-10] MEDS: SODIUM CHLORIDE 0.9% 1,000 ML IV SCH ×3 (01:37→20:59)
[2020-06-10] MEDS: LEVOFLOXACIN 250MG PREMIX 50 ML IV SCH (01:38)
[2020-06-10] MEDS: METRONIDAZOLE 500 MG PREMIX 100 ML IV SCH ×3 (01:38→17:20)
[2020-06-10] MEDS ORDERED: LEVOFLOXACIN 500MG PREMIX 100 ML IV SCH (02:00)
[2020-06-10 02:10] VITALS: BP 128/66
[2020-06-10 04:00] VITALS: BP 119/82
[2020-06-10] MEDS ORDERED: LACTULOSE 20G/30ML UDC PO SCH (06:00)
[2020-06-10] MEDS: LEVOTHYROXINE SODIUM 25MCG TABLET PO SCH (06:09)
[2020-06-10 06:20] LABS: BASOPHILS % 0.2 % (0.0-2.0); EOSINOPHILS % 1.6 % (0.0-5.0); HEMOGLOBIN. 12.6 g/dL (12.0-16.0); LYMPHOCYTES % 12.2 % (20.0-50.0); MEAN CORPUSCULAR HEMOGLOBIN 27.8 pg (28.0-32.0); MEAN CORPUSCULAR VOLUME 88.4 fL (81.0-99.0); MEAN PLATELET VOLUME 9.2 fl (7.4-10.4); MONOCYTES % 9.6 % (2.0-8.0); NEUTROPHILS % 76.4 % (40.0-76.0); PLATELET 129 x1000/uL (130-400); RED BLOOD CELL COUNT 4.52 mill/uL (4.2-5.4); RED CELL DISTRIBUTION WIDTH 23.5 % (11.6-14.6)
[2020-06-10 08:00] VITALS: BP 139/75
[2020-06-10] MEDS ORDERED: DILTIAZEM HCL 360 MG PO SCH (09:00)
[2020-06-10] MEDS ORDERED: ALBUTEROL 6.7GM HFA INHALER INH SCH (09:00)
[2020-06-10] MEDS ORDERED: GUAIFENESIN MT SCH (09:00)
[2020-06-10] MEDS ORDERED: DILTIAZEM HCL 180MG CAPSULE CD 24HR PO SCH (09:00)
[2020-06-10] MEDS: CLOPIDOGREL 75MG TABLET PO SCH (09:00)
[2020-06-10] MEDS: DONEPEZIL HCL 5MG TABLET PO SCH (11:13)
[2020-06-10] MEDS: GUAIFENESIN 600MG ER TABLET PO SCH ×2 (11:13→17:21)
[2020-06-10] MEDS: ASCORBIC ACID 500 MG TABLET PO SCH ×2 (11:13→20:59)
[2020-06-10] MEDS: LOSARTAN POTASSIUM 25 MG TABLET PO SCH (11:14)
[2020-06-10] MEDS: MORPHINE SULFATE 2 MG/ML CPJ (NOT FOR IM USE) IV PRN (11:22)
[2020-06-10 12:00] VITALS: BP 119/80
[2020-06-10] MEDS ORDERED: HYDRALAZINE 20MG/ML VIAL IV PRN (12:30)
[2020-06-10 12:53] LABS: HEMATOCRIT 40.7 % (36.0-48.0); HEMOGLOBIN 12.8 g/dL (12.0-16.0)
[2020-06-10 16:00] VITALS: BP 114/53
[2020-06-10] MEDS: DILTIAZEM HCL 30MG TABLET PO SCH (17:20)
[2020-06-10 20:19] VITALS: BP 97/51
[2020-06-10] MEDS: ALBUTEROL (0.083%) 2.5MG/3ML NEB INH SCH ×2 (20:39→20:45)
[2020-06-10] MEDS: ATORVASTATIN CALCIUM 40MG TABLET PO SCH (20:59)
[2020-06-11 00:49] VITALS: BP 90/47
[2020-06-11] MEDS: METRONIDAZOLE 500 MG PREMIX 100 ML IV SCH ×3 (01:19→17:00)
[2020-06-11] MEDS: LEVOFLOXACIN 250MG PREMIX 50 ML IV SCH (02:28)
[2020-06-11 04:00] VITALS: BP 97/44
[2020-06-11] MEDS: SODIUM CHLORIDE 0.9% 1,000 ML IV SCH ×2 (05:53→12:53)
[2020-06-11] MEDS: DILTIAZEM HCL 30MG TABLET PO SCH ×4 (05:55→17:15)
[2020-06-11] MEDS: LEVOTHYROXINE SODIUM 25MCG TABLET PO SCH (07:10)
[2020-06-11 07:30] LABS: CHLORIDE 116 mEq/L (98-107)
[2020-06-11 07:32] LABS: BASOPHILS % 0.2 % (0.0-2.0); EOSINOPHILS % 2.7 % (0.0-5.0); HEMATOCRIT. 35.4 % (36.0-48.0); HEMOGLOBIN. 11.1 g/dL (12.0-16.0); LYMPHOCYTES % 11.2 % (20.0-50.0); MEAN CORPUSCULAR HEMOGLOBIN 28.3 pg (28.0-32.0); MEAN CORPUSCULAR VOLUME 89.9 fL (81.0-99.0); MEAN PLATELET VOLUME 9.2 fl (7.4-10.4); MONOCYTES % 10.7 % (2.0-8.0); NEUTROPHILS % 75.2 % (40.0-76.0); PLATELET 110 x1000/uL (130-400); RED BLOOD CELL COUNT 3.94 mill/uL (4.2-5.4); RED CELL DISTRIBUTION WIDTH 23.2 % (11.6-14.6)
[2020-06-11 08:00] VITALS: BP 99/66
[2020-06-11] MEDS: DONEPEZIL HCL 5MG TABLET PO SCH (08:27)
[2020-06-11] MEDS: LOSARTAN POTASSIUM 25 MG TABLET PO SCH (08:27)
[2020-06-11] MEDS: GUAIFENESIN 600MG ER TABLET PO SCH ×2 (08:27→17:00)
[2020-06-11] MEDS: ASCORBIC ACID 500 MG TABLET PO SCH ×2 (08:27→21:24)
[2020-06-11] MEDS: CLOPIDOGREL 75MG TABLET PO SCH (08:27)
[2020-06-11] MEDS ORDERED: DOCUSATE SODIUM 250MG CAPSULE PO SCH (09:00)
[2020-06-11] MEDS: ALBUTEROL (0.083%) 2.5MG/3ML NEB INH SCH ×4 (09:15→21:07)
[2020-06-11 12:00] VITALS: BP 94/46
[2020-06-11 16:00] VITALS: BP 102/51
[2020-06-11 20:32] VITALS: BP 100/62
[2020-06-11] MEDS: ATORVASTATIN CALCIUM 40MG TABLET PO SCH (21:24)
[2020-06-12 00:40] VITALS: BP 122/61
[2020-06-12] MEDS: DILTIAZEM HCL 30MG TABLET PO SCH ×4 (00:44→17:42)
[2020-06-12] MEDS: METRONIDAZOLE 500 MG PREMIX 100 ML IV SCH ×3 (01:03→17:37)
[2020-06-12] MEDS: LEVOFLOXACIN 250MG PREMIX 50 ML IV SCH (02:26)
[2020-06-12 04:00] VITALS: BP 115/52
[2020-06-12] MEDS: LEVOTHYROXINE SODIUM 25MCG TABLET PO SCH (06:36)
[2020-06-12 06:37] LABS: BASOPHILS % 0.3 % (0.0-2.0); EOSINOPHILS % 3.3 % (0.0-5.0); HEMATOCRIT. 35.1 % (36.0-48.0); HEMOGLOBIN. 11.2 g/dL (12.0-16.0); LYMPHOCYTES % 16.1 % (20.0-50.0); MEAN CORPUSCULAR HEMOGLOBIN 28.2 pg (28.0-32.0); MEAN CORPUSCULAR VOLUME 88.5 fL (81.0-99.0); MEAN PLATELET VOLUME 8.7 fl (7.4-10.4); MONOCYTES % 14.7 % (2.0-8.0); NEUTROPHILS % 65.6 % (40.0-76.0); PLATELET 127 x1000/uL (130-400); RED BLOOD CELL COUNT 3.96 mill/uL (4.2-5.4); RED CELL DISTRIBUTION WIDTH 23.4 % (11.6-14.6)
[2020-06-12] MEDS: ALBUTEROL (0.083%) 2.5MG/3ML NEB INH SCH ×4 (07:40→21:19)
[2020-06-12 08:00] VITALS: BP 130/67
[2020-06-12] MEDS: DONEPEZIL HCL 5MG TABLET PO SCH (08:38)
[2020-06-12] MEDS: ASCORBIC ACID 500 MG TABLET PO SCH ×2 (08:38→20:50)
[2020-06-12] MEDS: GUAIFENESIN 600MG ER TABLET PO SCH ×2 (08:38→17:37)
[2020-06-12] MEDS: LOSARTAN POTASSIUM 25 MG TABLET PO SCH (08:38)
[2020-06-12] MEDS ORDERED: LORAZEPAM 2MG/ML CPJ IV NR (11:30)
[2020-06-12] MEDS: POTASSIUM CHLORIDE 20MEQ TABLET SR PO SCH (11:37)
[2020-06-12 12:00] VITALS: BP 116/57
[2020-06-12 16:00] VITALS: BP 111/69
[2020-06-12 19:12] LABS: T4 FREE 1.41 ng/dL (0.76-1.46)
[2020-06-12 19:39] LABS: FOLIC ACID (FOLATE) SERUM 17.3 ng/mL (>5.38)
[2020-06-12 20:21] VITALS: BP 125/61
[2020-06-12] MEDS: ATORVASTATIN CALCIUM 40MG TABLET PO SCH (20:50)
[2020-06-12] MEDS: TRAZODONE HCL 50MG TABLET PO SCH (20:50)
[2020-06-13 00:22] VITALS: BP 103/62
[2020-06-13] MEDS: METRONIDAZOLE 500 MG PREMIX 100 ML IV SCH ×2 (01:06→09:21)
[2020-06-13] MEDS: LEVOFLOXACIN 250MG PREMIX 50 ML IV SCH (02:19)
[2020-06-13 04:00] VITALS: BP 114/80
[2020-06-13] MEDS: LEVOTHYROXINE SODIUM 25MCG TABLET PO SCH (06:30)
[2020-06-13] MEDS: DILTIAZEM HCL 30MG TABLET PO SCH ×4 (06:30→17:55)
[2020-06-13 07:29] LABS: CHLORIDE 116 mEq/L (98-107)
[2020-06-13] MEDS: ALBUTEROL (0.083%) 2.5MG/3ML NEB INH SCH ×4 (07:44→20:49)
[2020-06-13 07:52] LABS: BASOPHILS % 0.4 % (0.0-2.0); EOSINOPHILS % 3.3 % (0.0-5.0); HEMATOCRIT. 35.2 % (36.0-48.0); HEMOGLOBIN. 11.1 g/dL (12.0-16.0); LYMPHOCYTES % 16.6 % (20.0-50.0); MEAN CORPUSCULAR HEMOGLOBIN 27.6 pg (28.0-32.0); MEAN CORPUSCULAR VOLUME 87.9 fL (81.0-99.0); MEAN PLATELET VOLUME 8.8 fl (7.4-10.4); MONOCYTES % 14.9 % (2.0-8.0); NEUTROPHILS % 64.8 % (40.0-76.0); PLATELET 127 x1000/uL (130-400); RED BLOOD CELL COUNT 4.01 mill/uL (4.2-5.4); RED CELL DISTRIBUTION WIDTH 22.8 % (11.6-14.6)
[2020-06-13 08:00] VITALS: BP 117/79
[2020-06-13 09:02] LABS: CLARITY URINE CLEAR (CLEAR); COLOR URINE DARK YELLOW (YELLOW); KETONES URINE NEGATIVE (NEGATIVE); LEUKOCYTE ESTERASE URINE TRACE (NEGATIVE); NITRITE URINE NEGATIVE (NEGATIVE); OCCULT BLOOD URINE NEGATIVE (NEGATIVE); PH URINE 5.5 (4.5-8.0); PROTEIN URINE NEGATIVE (NEGATIVE); SPECIFIC GRAVITY URINE 1.018 (1.005-1.030)
[2020-06-13] MEDS: DONEPEZIL HCL 5MG TABLET PO SCH (09:22)
[2020-06-13] MEDS: GUAIFENESIN 600MG ER TABLET PO SCH ×2 (09:22→17:55)
[2020-06-13] MEDS: POTASSIUM CHLORIDE 20MEQ TABLET SR PO SCH (09:22)
[2020-06-13] MEDS: ASCORBIC ACID 500 MG TABLET PO SCH ×2 (09:22→21:24)
[2020-06-13] MEDS: LOSARTAN POTASSIUM 25 MG TABLET PO SCH (09:22)
[2020-06-13 12:00] VITALS: BP 118/74
[2020-06-13 16:00] VITALS: BP 129/72
[2020-06-13] MEDS: METRONIDAZOLE 500MG TABLET PO SCH (17:53)
[2020-06-13 19:53] VITALS: BP 109/47
[2020-06-13] MEDS: MORPHINE SULFATE 2 MG/ML CPJ (NOT FOR IM USE) IV PRN (19:57)
[2020-06-13] MEDS: ATORVASTATIN CALCIUM 40MG TABLET PO SCH (21:24)
[2020-06-13] MEDS: TRAZODONE HCL 50MG TABLET PO SCH (21:24)
[2020-06-14] MEDS: METRONIDAZOLE 500MG TABLET PO SCH ×3 (00:18→18:18)
[2020-06-14] MEDS: DILTIAZEM HCL 30MG TABLET PO SCH ×4 (00:19→18:19)
[2020-06-14 00:26] VITALS: BP 112/50
[2020-06-14] MEDS: LEVOFLOXACIN 250MG PREMIX 50 ML IV SCH (01:13)
[2020-06-14 04:00] VITALS: BP 100/53
[2020-06-14 06:21] LABS: HEMATOCRIT. 35.3 % (36.0-48.0); HEMOGLOBIN. 11.1 g/dL (12.0-16.0); MEAN CORPUSCULAR VOLUME 88.8 fL (81.0-99.0); MEAN PLATELET VOLUME 8.5 fl (7.4-10.4); PLATELET 136 x1000/uL (130-400); RED BLOOD CELL COUNT 3.98 mill/uL (4.2-5.4); RED CELL DISTRIBUTION WIDTH 22.9 % (11.6-14.6)
[2020-06-14] MEDS: LEVOTHYROXINE SODIUM 25MCG TABLET PO SCH (06:54)
[2020-06-14 07:17] LABS: CHLORIDE 117 mEq/L (98-107)
[2020-06-14 08:29] VITALS: BP 108/55
[2020-06-14] MEDS: DONEPEZIL HCL 5MG TABLET PO SCH (09:41)
[2020-06-14] MEDS: ASCORBIC ACID 500 MG TABLET PO SCH ×2 (09:41→21:00)
[2020-06-14] MEDS: LOSARTAN POTASSIUM 25 MG TABLET PO SCH (09:41)
[2020-06-14] MEDS: POTASSIUM CHLORIDE 20MEQ TABLET SR PO SCH (09:41)
[2020-06-14] MEDS: GUAIFENESIN 600MG ER TABLET PO SCH ×2 (09:41→18:18)
[2020-06-14 12:00] VITALS: BP 131/68
[2020-06-14 12:49] LABS: NUCLEATED RED BLOOD CELLS 1 /100 WBC; PLATELET ESTIMATE NORMAL
[2020-06-14] MEDS ORDERED: APIXABAN 5 MG TABLET PO SCH (13:30)
[2020-06-14 16:00] VITALS: BP 118/58
[2020-06-14] MEDS: ALBUTEROL (0.083%) 2.5MG/3ML NEB INH SCH ×2 (17:30→20:15)
[2020-06-14] MEDS: APIXABAN 5 MG TABLET PO SCH (18:18)
[2020-06-14 20:22] VITALS: BP 116/67
[2020-06-14] MEDS: TRAZODONE HCL 50MG TABLET PO SCH (21:00)
[2020-06-14] MEDS: ATORVASTATIN CALCIUM 40MG TABLET PO SCH (21:00)
[2020-06-15] VITALS: BP 118/71
[2020-06-15 04:00] VITALS: BP 118/78
[2020-06-15] MEDS: LEVOTHYROXINE SODIUM 25MCG TABLET PO SCH (06:24)
[2020-06-15] MEDS: DILTIAZEM HCL 30MG TABLET PO SCH ×3 (06:24→08:54)
[2020-06-15] MEDS: ALBUTEROL (0.083%) 2.5MG/3ML NEB INH SCH ×3 (07:21→15:04)
[2020-06-15 07:55] LABS: HEMOGLOBIN. 11.1 g/dL (12.0-16.0); MEAN CORPUSCULAR HEMOGLOBIN 27.9 pg (28.0-32.0); MEAN CORPUSCULAR VOLUME 88.2 fL (81.0-99.0); MEAN PLATELET VOLUME 8.5 fl (7.4-10.4); PLATELET 153 x1000/uL (130-400); RED BLOOD CELL COUNT 3.97 mill/uL (4.2-5.4); RED CELL DISTRIBUTION WIDTH 22.6 % (11.6-14.6)
[2020-06-15 07:59] LABS: CHLORIDE 114 mEq/L (98-107)
[2020-06-15 08:00] VITALS: BP 131/76
[2020-06-15] MEDS: ASCORBIC ACID 500 MG TABLET PO SCH (08:54)
[2020-06-15] MEDS: DONEPEZIL HCL 5MG TABLET PO SCH (08:54)
[2020-06-15] MEDS: LOSARTAN POTASSIUM 25 MG TABLET PO SCH (08:55)
[2020-06-15] MEDS: POTASSIUM CHLORIDE 20MEQ TABLET SR PO SCH (08:55)
[2020-06-15] MEDS: APIXABAN 5 MG TABLET PO SCH (08:55)
[2020-06-15] MEDS: GUAIFENESIN 600MG ER TABLET PO SCH (08:55)
[2020-06-15 11:02] LABS: PLATELET ESTIMATE NORMAL
[2020-06-15 12:16] VITALS: BP 110/67
[2020-06-15] MEDS ORDERED: SODIUM POLYSTYRENE SULFONATE 15 G/60 ML BOT PO SCH (13:00)
[2020-06-15 15:09] VITALS: BP 110/61
== END 2020-06-15 16:24 | DRG 377 ==
LOC: ER 16:16 → 6EST 21:17 → ENRESERV 21:41 → 6WST 06-10 13:53
PROVIDERS: ADMIT Internal Medicine; ATTEND Internal Medicine
DX: K57.31 Diverticulosis of large intestine without perforation or abscess with bleeding (principal); G92 Toxic encephalopathy; J18.9 Pneumonia, unspecified organism; I50.22 Chronic systolic (congestive) heart failure; K56.609 Unspecified intestinal obstruction, unspecified as to partial versus complete obstruction; I13.0 Hypertensive heart and chronic kidney disease with heart failure and stage 1 through stage 4 chronic kidney disease, or unspecified chronic kidney disease; I48.20 Chronic atrial fibrillation, unspecified; D62 Acute posthemorrhagic anemia; J44.0 Chronic obstructive pulmonary disease with (acute) lower respiratory infection; K52.9 Noninfective gastroenteritis and colitis, unspecified; D69.6 Thrombocytopenia, unspecified; E03.9 Hypothyroidism, unspecified; E11.9 Type 2 diabetes mellitus without complications; E78.5 Hyperlipidemia, unspecified; F03.90 Unspecified dementia, unspecified severity, without behavioral disturbance, psychotic disturbance, mood disturbance, and anxiety; I08.1 Rheumatic disorders of both mitral and tricuspid valves; I11.0 Hypertensive heart disease with heart failure; I25.10 Atherosclerotic heart disease of native coronary artery without angina pectoris; I25.5 Ischemic cardiomyopathy; I27.20 Pulmonary hypertension, unspecified; I48.0 Paroxysmal atrial fibrillation; I49.5 Sick sinus syndrome; E11.22 Type 2 diabetes mellitus with diabetic chronic kidney disease; Z20.828 Contact with and (suspected) exposure to other viral communicable diseases; I27.81 Cor pulmonale (chronic); I27.29 Other secondary pulmonary hypertension; N18.9 Chronic kidney disease, unspecified; E87.6 Hypokalemia; F32.9 Major depressive disorder, single episode, unspecified; E87.5 Hyperkalemia; Z82.49 Family history of ischemic heart disease and other diseases of the circulatory system; Z87.01 Personal history of pneumonia (recurrent); Z87.891 Personal history of nicotine dependence; Z95.1 Presence of aortocoronary bypass graft; Z79.51 Long term (current) use of inhaled steroids; Z95.0 Presence of cardiac pacemaker
CPT/HCPCS: 36415; 71045; 74176; 80048; 80053; 81003; 82140; 82270; 82607; 82746; 83036; 83735; 83880; 84439; 84443; 84481; 84484; 85014; 85018; 85025; 87635; 93005; 94640; 97110; 97162; 97166; 97530; 97535; 99285; J1956; J2060; J2270; J2405; J3490; J7030